=== PATIENT | male | born 1930 | race Caucasian/White ===

== ENCOUNTER 2017-03-07 09:45 | Emergency (ER) | payer MEDICARE, BC ==
[2017-03-07] MEDS ORDERED: Sodium Chloride 0.9% 1,000 ML IV SCH (10:00)
[2017-03-07] MEDS ORDERED: Ondansetron 4 MG/2 ML SDV IVPUSH PRN (10:52)
--- NOTE | 2017-03-07 11:30 | EDM.PDOC ---
ED HPI GENERAL MEDICAL PROBLEM - General Chief Complaint: Gastrointestinal Problem Stated Complaint: N/V Time Seen by Provider: 03/07/17 09:53 Source of Information: Reports: Patient, Family History Limitations: Reports: No Limitations - History of Present Illness INITIAL COMMENTS - FREE TEXT/NARRATIVE: Patient indicates back surgery laminectomy 2 weeks ago without complications on February 19 and released on February after an adverse reaction to pain medication "opioid"-where he passed out in BR. He has recuperated at home with tylenol for pain relief but indicates persistent diarrhea-he has been eating and drinking well and upon returning home from F/U yesterday and skin clip removal he stopped at truck stop in [place] and had chicken nuggets and blueberry muffin-after which had a short nap and awakened with not feeling well- nausea and vomiting in the car. He states he has had emesis without noted bleeding and affirms formed dark colored stools which he states is from the peptobismol he has been taking. Patient denies fever, or chills but affirms persistent nausea. He did eat breakfast this am and last bout of vomiting was DRAPERY HAND. He noted mid abdominal tenderness and states formed BM this am normal color and consistancy. He is passing flatus. He denies dysuria and voided DRAPERY HAND.He presents with family for evaluation. Onset: Gradual Onset Date: 03/06/17 Onset Time: 16:00 Duration: Intermittent, Waxing/Waning Location: Reports: Generalized Quality: Reports: Other (Abdominal tenderness) Severity: Mild Improves with: Reports: Rest Worsens with: Reports: Eating Context: Reports: Activity Associated Symptoms: Reports: No Other Symptoms, Nausea/Vomiting. Denies: Confusion, Chest Pain, Cough, cough w sputum, Diaphoresis, Fever/Chills, Headaches, Loss of Appetite, Malaise, Rash, Seizure, Shortness of Breath, Syncope, Weakness Treatments DRAPERY HAND: Reports: Acetaminophen Upper Abdomen Pain Score (Numeric/FACES): 7 (Tenderness to palpation) - Related Data Allergies Allergy/AdvReac Type Severity Reaction Status Date / Time Iodinated Contrast- Oral and Allergy Vomiting Verified 03/07/17 09:38 IV Dye Penicillins Allergy Cannot Verified 03/07/17 09:38 Remember Sulfa (Sulfonamide Allergy Cannot Verified 03/07/17 09:38 Antibiotics) Remember Home Meds: Home Meds Aspirin [Low Dose Aspirin EC] 81 mg PO DAILY 07/26/13 [History] Cholestyramine/Sucrose [Cholestyramine Packet] 4 gm PO DAILY 05/22/16 [History] Cyanocobalamin (Vitamin B-12) [Cyanocobalamin Injection] 1,000 mcg IM Q30D 05/22 [History] Finasteride [Finasteride] 5 mg PO DAILY 05/22/16 [History] Benazepril HCl [Lotensin] 20 mg PO BID 03/07/17 [History] Cholecalciferol (Vitamin D3) [Vitamin D3] 5,000 unit PO DAILY 03/07/17 [History] Hydrochlorothiazide [Microzide] 12.5 mg PO BID 03/07/17 [History] Magnesium Oxide [Magnesium] 500 mg PO DAILY 03/07/17 [History] Metoprolol Succinate [Toprol Xl] 50 mg PO DAILY 03/07/17 [History] Potassium Chloride 10 meq PO DAILY 03/07/17 [History] Past Medical History HEENT History: Reports: Hard of Hearing, Impaired Vision Cardiovascular History: Reports: High Cholesterol, Hypertension, Other (See Below) (Presurgical 02/19 cardiology workup WNL) Respiratory History: Reports: None Gastrointestinal History: Reports: Other (See Below) (Colonoscopy WNL-Tubular Adenoma) Genitourinary History: Reports: BPH Musculoskeletal History: Reports: Arthritis, Back Pain, Chronic, Other (See Below) (Laminectomy) Neurological History: Reports: Other (See Below) (Laminectomy) - Past Surgical History GI Surgical History: Reports: Cholecystectomy, Hernia, Abdominal, Hernia, Inguinal Social & Family History - Tobacco Use Smoking Status *Q: Former Smoker Tobacco Use Within Last Twelve Months: Cigarettes Years of Tobacco use: 15 Used Tobacco, but Quit: Yes Month Tobacco Last Used: 40 years ago - Caffeine Use Caffeine Use: Reports: Coffee - Alcohol Use Alcohol Use History: No Days Per Week of Alcohol Use: 0 - Recreational Drug Use Recreational Drug Use: No - Living Situation & Occupation Living situation: Reports: , with Spouse Occupation: Retired ED ROS GENERAL - Review of Systems Review Of Systems: See Below Constitutional: Reports: No Symptoms. Denies: Fever, Chills, Malaise, Weakness , Fatigue, Night Sweats, Diaphoresis, Decreased Appetite, Weight Loss, Weight Gain HEENT: Reports: Glasses, Hearing Loss Respiratory: Reports: No Symptoms Cardiovascular: Denies: Chest Pain, Blood Pressure Problem, Claudication, Dyspnea on Exertion, Edema, Lightheadedness, Orthopnea, Palpitations, PND, Syncope Endocrine: Reports: No Symptoms GI/Abdominal: Reports: Decreased Appetite, Flatus, Nausea, Vomiting, Other ( Muscle tenderness). Denies: Bloody Stool, Difficulty Swallowing, Distension, Hematemesis, Melena : Reports: No Symptoms Musculoskeletal: Reports: Other (Recent Laminectomy) Skin: Reports: No Symptoms Neurological: Reports: No Symptoms. Denies: Confusion, Dizziness, Headache, Numbness, Paresthesia, Pre-Existing Deficit, Seizure, Syncope, Tingling, Tremors , Trouble Speaking, Difficulty Walking, Weakness, Gait Disturbance Psychiatric: Reports: Anxiety Hematologic/Lymphatic: Reports: No Symptoms Immunologic: Reports: No Symptoms ED EXAM, GI/ABD - Physical Exam Exam: See Below Exam Limited By: No Limitations General Appearance: Alert, WD/WN, No Apparent Distress Eyes: Bilateral: Normal Appearance, EOMI, Abnormal EOM Ears: Normal External Exam, Normal Canal, Hearing Loss Nose: Normal Inspection, Normal Mucosa, No Blood Throat/Mouth: Normal Inspection, Normal Lips, Normal Teeth, Normal Gums, Normal Oropharynx, Normal Voice, No Airway Compromise Head: Atraumatic, Normocephalic Neck: Non-Tender, Full Range of Motion Respiratory/Chest: No Respiratory Distress, Lungs Clear, Normal Breath Sounds, No Accessory Muscle Use, Chest Non-Tender Cardiovascular: Normal Peripheral Pulses, Regular Rate, Rhythm, No Edema, No Gallop, No JVD, No Murmur GI/Abdominal Exam: Normal Bowel Sounds, Soft, No Organomegaly, No Distention, No Abnormal Bruit, No Mass, Tender (Male) Exam: Deferred Rectal (Males) Exam: Deferred Back Exam: Normal Inspection (4 cm incision L Spine with edges well approximated and good healing. No exudate or redness noted.) Extremities: Normal Inspection, Normal Range of Motion, Non-Tender, No Pedal Edema, Normal Capillary Refill Neurological: Alert, Oriented, CN II-XII Intact, Normal Cognition, Normal Gait, Normal Reflexes, No Motor/Sensory Deficits Psychiatric: Normal Affect, Normal Mood Skin Exam: Warm, Dry, Intact, Normal Color, No Rash, Other (Incision L SPine as indicated.) Lymphatic: No Adenopathy ED ABDOMINAL/GI PROCEDURES - Additional/Other Procedure(s) Procedure(s) (Free Text): CT Abdomen without contrast indicates dilated bowel with air fluid levels and ascites. Questionable bowel obstruction vs colitis. Course - Vital Signs Last Recorded V/S: Last Vital Signs Temp 37.3 C 03/07/17 14:37 Pulse 83 03/07/17 14:37 Resp 20 03/07/17 14:37 BP 125/72 03/07/17 14:37 Pulse Ox 95 03/07/17 14:37 - Orders/Labs/Meds Orders: Active Orders 24 hr Category Date Time Status Abdomen Pelvis wo Cont [CT] Stat Exams 03/07/17 11:15 Taken Ondansetron [Zofran] Med 03/07/17 10:52 Active 4 mg IVPUSH Q6H PRN Sodium Chloride 0.9% [Normal Saline] 1,000 ml Med 03/07/17 10:00 Active IV ASDIRECTED Medication Orders Sodium Chloride (Normal Saline) 1,000 mls @ 50 mls/hr IV ASDIRECTED MANDO Last Admin: 03/07/17 10:16 Dose: 50 mls/hr Ondansetron HCl (Zofran) 4 mg IVPUSH Q6H PRN PRN Reason: Nausea Last Admin: 03/07/17 11:02 Dose: 4 mg Labs: Laboratory Tests 03/07/17 03/07/17 03/07/17 Range/Units 09:56 09:56 12:21 WBC 22.8 H* (5.0-10.0) 10^3/uL RBC 4.69 (4.50-6.00) 10^6/uL Hgb 13.0 L (14.0-18.0) g/dL Hct 38.9 L (40.0-54.0) % MCV 82.9 (82.0-94.0) fL MCH 27.7 (27.0-32.0) pg MCHC 33.4 (33.0-38.0) g/dL RDW Coeff of [place] 14.0 (11.0-15.0) % Plt Count 645 H (150-400) 10^3/uL Add Manual Diff Yes Neutrophils % (Manual) 90 H (35-85) % Lymphocytes % (Manual) 6 L (21-55) % Monocytes % (Manual) 4 (2-12) % Absolute Neutrophils 20.52 H (1.80-7.00) 10^3/uL Lymphocytes # (Manual) 1.37 (1.00-4.80) 10^3/uL Monocytes # (Manual) 0.91 H (0.00-0.80) 10^3/uL Sodium 134 L (136-145) mEq/L Potassium 3.4 L (3.5-5.0) mEq/L Chloride 94 L (98-106) mEq/L Carbon Dioxide 34 H (21-32) mmol/L BUN 22 H (7-18) mg/dL Creatinine 1.4 H (0.7-1.3) mg/dL Est Cr Clr Drug Dosing 36.47 mL/min Estimated GFR (MDRD) 48 L (>=60) mL/min Glucose 148 H D (75-99) mg/dL Calcium 8.9 (8.4-10.1) mg/dL Total Bilirubin 0.9 (0.0-1.0) mg/dL AST 16 (15-37) U/L ALT 15 (12-78) U/L Alkaline Phosphatase 104 (46-116) U/L Troponin I 0.028 (0.00-0.06) ng/mL C-Reactive Protein 3.9 H (0.2-0.8) mg/dL Total Protein 6.7 (6.4-8.2) g/dL Albumin 2.9 L (3.4-5.0) g/dL Amylase 47 (25-115) U/L Urine Color Dark yellow (YELLOW) Urine Appearance Slightly cloudy (CLEAR) Urine pH 5.5 (4.5-8.0) Ur Specific [place] 1.025 H (1.003-1.020) Urine Protein 100 H (NEGATIVE) mg/dL Urine Glucose (UA) Negative (NEGATIVE) mg/dL Urine Ketones Trace H (NEGATIVE) mg/dL Urine Occult Blood Negative (NEGATIVE) Urine Nitrite Negative (NEGATIVE) Urine Bilirubin Small H (NEGATIVE) Urine Urobilinogen 0.2 (0.2-1.0) EU/dL Ur Leukocyte Esterase Negative (NEGATIVE) Urine RBC Not seen (0-5) /HPF Urine WBC 0-5 (0-5) /HPF Ur Squamous Epith Cells Occasional H (NOT SEEN) /HPF Urine Bacteria Occasional H (NOT SEEN) /HPF Hyaline Casts Few H (NOT SEEN) /LPF Urine Mucus Moderate H (NOT SEEN) /HPF Meds: Medications Generic Name Dose Route Start Last Admin Trade Name Freq PRN Reason Stop Dose Admin Sodium Chloride 1,000 mls @ 50 mls/hr 03/07/17 10:00 03/07/17 10:16 Normal Saline IV 50 mls/hr ASDIRECTED MANDO Administration Ondansetron HCl 4 mg 03/07/17 10:52 03/07/17 11:02 Zofran IVPUSH 4 mg Q6H PRN Administration Nausea Discontinued Medications Generic Name Dose Route Start Last Admin Trade Name Freq PRN Reason Stop Dose Admin Ceftriaxone Sodium 1 gm 03/07/17 13:37 03/07/17 13:53 Rocephin IVPUSH 03/07/17 13:38 1 gm ONETIME ONE Administration Metronidazole 500 mg/ Premix 100 mls @ 100 mls/hr 03/07/17 13:37 03/07/17 14: 00 IV 03/07/17 14:36 100 mls/hr ONETIME ONE Administration Departure - Departure Time of Disposition: 15:05 Disposition: DC/Tfer to Acute Hospital 02 Condition: Fair Clinical Impression: Abdominal pain, Small bowel obstruction - Discharge Information Referrals: Jonny Valladares MD [Primary Care Provider] - Forms: ED Department Discharge MLP Sign Off - Signature Requirements MLP Sign Off: No - Problem List & Annotations (1) Gastroenteritis SNOMED Code(s): 88052077 Code(s): K52.9 - NONINFECTIVE GASTROENTERITIS AND COLITIS, UNSPECIFIED Status: Acute Current Visit: Yes (2) Neutrophilic leukocytosis SNOMED Code(s): 989647821, 745685921 Code(s): D72.9 - DISORDER OF WHITE BLOOD CELLS, UNSPECIFIED Status: Acute Current Visit: No (3) Bowel obstruction SNOMED Code(s): 40133548 Code(s): K56.60 - UNSPECIFIED INTESTINAL OBSTRUCTION Status: Acute Current Visit: Yes - Problem List Review Problem List Initiated/Reviewed/Updated: Yes - My Orders Last 24 Hours: My Active Orders 03/07/17 10:00 Sodium Chloride 0.9% [Normal Saline] 1,000 ml IV ASDIRECTED 03/07/17 10:52 Ondansetron [Zofran] 4 mg IVPUSH Q6H PRN 03/07/17 11:15 Abdomen Pelvis wo Cont [CT] Stat - Assessment/Plan Last 24 Hours: My Active Orders 03/07/17 10:00 Sodium Chloride 0.9% [Normal Saline] 1,000 ml IV ASDIRECTED 03/07/17 10:52 Ondansetron [Zofran] 4 mg IVPUSH Q6H PRN 03/07/17 11:15 Abdomen Pelvis wo Cont [CT] Stat Assessment:: Gastroenteritis Leukocytosis S/P Back Surgery Abdominal CT noted significant dilated loops of bowel with air fluid levels and ascites. Difficult to ascertain due to inability of patient to have contrast per Radiology. Bowel obstruction- Questionable inflammatory bowel disease. Plan: [facility] care. Patient and family agree with transfer. Risks and benefits discussed with family andpatient. Risks of transfer vhicle crash, uncontrolled pain, possible . Benefits of transfer specialized care and interventions not provided at local facility. Risks of non transfer lack of specialized care treatments and interventions. Worsening of condition, . Benefits of non transfer staying in familiar environment and close to home. Patient and family verbalize understanding and is in agreement with transfer.
[2017-03-07] MEDS ORDERED: cefTRIAXone 1 GM Vial IVPUSH ONE (13:37)
[2017-03-07] MEDS ORDERED: metroNIDAZOLE/Normal Saline 500 MG in Premix Bag 1 BAG IV ONE (13:37)
[2017-03-07 14:38] VITALS: BP 125/72
== END 2017-03-07 15:05 ==
LOC: CC.ED 09:45
DX: K56.60 Unspecified intestinal obstruction (principal); K52.9 Noninfective gastroenteritis and colitis, unspecified; D72.829 Elevated white blood cell count, unspecified; I10 Essential (primary) hypertension; M19.90 Unspecified osteoarthritis, unspecified site; Z90.49 Acquired absence of other specified parts of digestive tract; Z88.8 Allergy status to other drugs, medicaments and biological substances; Z88.0 Allergy status to penicillin; Z79.899 Other long term (current) drug therapy; Z79.82 Long term (current) use of aspirin; Z88.2 Allergy status to sulfonamides; Z87.891 Personal history of nicotine dependence; Z98.890 Other specified postprocedural states
CPT/HCPCS: 36415; 74176; 80053; 81001; 82150; 84484; 85025; 86140; 93005; 96361; 96365; 96375; 99285; J0696; J2405; J7030; 93010

== ENCOUNTER 2017-10-27 11:03 | Inpatient (IN) | payer MEDICARE, BC ==
[2017-10-27] MEDS ORDERED: Lactated Ringers 1,000 ML IV ONE (11:45)
--- NOTE | 2017-10-27 12:51 | EDM.PDOC ---
ED HPI GENERAL MEDICAL PROBLEM - General Chief Complaint: Gastrointestinal Problem Stated Complaint: diarrhea x6 with dull abd pain Time Seen by Provider: 10/27/17 11:37 Source of Information: Reports: Patient History Limitations: Reports: No Limitations - History of Present Illness INITIAL COMMENTS - FREE TEXT/NARRATIVE: Harshal is an 87 year old male who presents to the ED with c/o diarrhea x 6 and some dull abdominal pain starting this morning. He reports he is currently on oral chemotherapy for colon cancer. Reports he has never had any issues with this type of diarrhea. He does chronically have some diarrhea, but he reports that today it was large volume and watery. He reports that he was scheduled to f /u with his oncologist today, but instead called and told them about his symptoms. They recommended he be seen in the ED for evaluation, prior to driving all the way to [place]. He reports that starting this morning he has had some dull crampy lower abdominal pain. Has had 6 episodes of large volume watery diarrhea. Reports his appetite is decreased. Denies any N/V, fever, chills, chest pain, shortness of breath, cough, urinary symptoms. Reports that up until yesterday he has been feeling well. He is on oral chemo rounds which consist of 2 weeks on, 1 week off. He reports he was scheduled to start his 6th round today. Onset: Today Duration: Getting Worse Location: Reports: Abdomen Quality: Reports: Dull, Other (crampy) Improves with: Reports: None Worsens with: Reports: None Associated Symptoms: Reports: Loss of Appetite, Nausea/Vomiting, Weakness. Denies: Confusion, Chest Pain, Cough, cough w sputum, Diaphoresis, Fever/Chills , Headaches, Malaise, Rash, Seizure, Shortness of Breath, Syncope Lower Abdominal Pain Score (Numeric/FACES): 3 - Related Data Allergies Allergy/AdvReac Type Severity Reaction Status Date / Time Iodinated Contrast- Oral and Allergy Vomiting Verified 10/27/17 11:20 IV Dye Penicillins Allergy Cannot Verified 10/27/17 11:20 Remember Sulfa (Sulfonamide Allergy Cannot Verified 10/27/17 11:20 Antibiotics) Remember tramadol Allergy Fainting Verified 10/27/17 11:29 Home Meds: Home Meds Aspirin [Low Dose Aspirin EC] 81 mg PO DAILY 02/11/14 [History] Cholestyramine/Sucrose [Cholestyramine Packet] 4 gm PO DAILY 05/22/16 [History] Cyanocobalamin (Vitamin B-12) [Cyanocobalamin Injection] 1,000 mcg IM Q30D 05/22 [History] Finasteride 5 mg PO DAILY 05/22/16 [History] Benazepril HCl [Lotensin] 20 mg PO BID 03/07/17 [History] Cholecalciferol (Vitamin D3) [Vitamin D3] 5,000 unit PO DAILY 03/07/17 [History] Hydrochlorothiazide [Microzide] 12.5 mg PO BID 03/07/17 [History] Magnesium Oxide [Magnesium] 500 mg PO DAILY 03/07/17 [History] Metoprolol Succinate [Toprol Xl] 50 mg PO DAILY 03/07/17 [History] Potassium Chloride 10 meq PO DAILY 03/07/17 [History] Capecitabine 600 mg PO BEDTIME 10/27/17 [History] Capecitabine 800 mg PO QAM 10/27/17 [History] Past Medical History HEENT History: Reports: Hard of Hearing, Impaired Vision Cardiovascular History: Reports: High Cholesterol, Hypertension, Other (See Below) Respiratory History: Reports: None Gastrointestinal History: Reports: Other (See Below) Genitourinary History: Reports: BPH Musculoskeletal History: Reports: Arthritis, Back Pain, Chronic, Other (See Below) Neurological History: Reports: Other (See Below) Oncologic (Cancer) History: Reports: Colon - Past Surgical History GI Surgical History: Reports: Cholecystectomy, Hernia, Abdominal, Hernia, Inguinal Social & Family History - Tobacco Use Smoking Status *Q: Never Smoker - Caffeine Use Caffeine Use: Reports: Coffee - Living Situation & Occupation Living situation: Reports: , with Spouse Occupation: Retired ED ROS GENERAL - Review of Systems Review Of Systems: See Below Constitutional: Reports: Weakness, Fatigue, Decreased Appetite. Denies: Fever, Chills, Diaphoresis Respiratory: Denies: Shortness of Breath, Wheezing, Pleuritic Chest Pain, Cough , Sputum, Hemoptysis Cardiovascular: Denies: Chest Pain, Dyspnea on Exertion, Edema, Lightheadedness , Syncope Endocrine: Reports: Fatigue GI/Abdominal: Reports: Abdominal Pain, Anorexia, Diarrhea, Decreased Appetite, Nausea. Denies: Black Stool, Bloody Stool, Constipation, Distension, Hematemesis, Hematochezia, Melena, Vomiting : Reports: No Symptoms. Denies: Dysuria, Frequency, Urgency Musculoskeletal: Reports: No Symptoms Skin: Reports: No Symptoms Neurological: Reports: No Symptoms Psychiatric: Reports: No Symptoms Hematologic/Lymphatic: Reports: No Symptoms Immunologic: Reports: No Symptoms ED EXAM, GI/ABD - Physical Exam Exam: See Below Exam Limited By: No Limitations General Appearance: Alert, WD/WN, No Apparent Distress Throat/Mouth: Normal Inspection Head: Atraumatic, Normocephalic Neck: Normal Inspection, Supple, Non-Tender, Full Range of Motion Respiratory/Chest: No Respiratory Distress, Lungs Clear, Normal Breath Sounds, No Accessory Muscle Use, Chest Non-Tender Cardiovascular: Normal Peripheral Pulses, Regular Rate, Rhythm, No Edema, No Gallop, No JVD, No Murmur, No Rub GI/Abdominal Exam: Normal Bowel Sounds, Soft, No Organomegaly, No Distention, Tender (lower quadrants). No: Guarding, Rigid, Rebound Back Exam: Normal Inspection, Full Range of Motion. No: CVA Tenderness (L), CVA Tenderness (R) Extremities: Normal Inspection, Normal Range of Motion, Non-Tender, Normal Capillary Refill, No Pedal Edema Neurological: Alert, Oriented, CN II-XII Intact, Normal Cognition, Normal Gait, Normal Reflexes, No Motor/Sensory Deficits Psychiatric: Normal Affect, Normal Mood Skin Exam: Warm, Dry, Intact, Normal Color, No Rash Lymphatic: No Adenopathy Course - Vital Signs Last Recorded V/S: Last Vital Signs Temp 97.4 F 10/27/17 16:00 Pulse 92 10/27/17 16:00 Resp 18 10/27/17 16:00 BP 149/65 H 10/27/17 16:00 Pulse Ox 95 10/27/17 16:00 - Orders/Labs/Meds Orders: Active Orders 24 hr Category Date Time Status Abdomen Pelvis w Cont [CT] Stat Exams 10/27/17 12:41 Taken Chest w Cont [CT] Stat Exams 10/27/17 12:41 Taken STOOL CULTURE [MREF] Stat Lab 10/27/17 12:13 Received Medication Orders Acetaminophen (Tylenol) 650 mg PO Q4H PRN PRN Reason: Pain (Mild 1-3)/fever Aspirin (Halfprin) 81 mg PO DAILY [facility] Enoxaparin Sodium (Lovenox) 40 mg SUBCUT Q24H [facility] Last Admin: 10/27/17 15:11 Dose: 40 mg Finasteride (Proscar) 5 mg PO DAILY [facility] Hydrochlorothiazide (Hydrochlorothiazide) 12.5 mg PO BID [facility] Lactated Ringer's (Ringers, Lactated) 1,000 mls @ 75 mls/hr IV ASDIRECTED [facility] Last Admin: 10/27/17 15:12 Dose: 75 mls/hr Potassium Chloride 40 meq/ (Premix) 100 mls @ 25 mls/hr IV ONETIME ONE Stop: 10/27/17 18:35 Last Admin: 10/27/17 15:11 Dose: 25 mls/hr Non-Formulary Medication (Benazepril Hcl) 20 mg PO BID [facility] Non-Formulary Medication (Cholecalciferol (Vitamin D3) [Vitamin D3]) 5,000 unit PO DAILY [facility] Non-Formulary Medication (Cholestyramine/Sucrose [Cholestyramine]) 4 gm PO DAILY [facility] Non-Formulary Medication (Magnesium Oxide [Magnesium]) 500 mg PO DAILY [facility] Non-Formulary Medication (Metoprolol Succinate [Toprol Xl]) 50 mg PO DAILY [facility] Ondansetron HCl (Zofran) 4 mg IV Q6H PRN PRN Reason: Nausea/Vomiting Temazepam (Restoril) 15 mg PO BEDTIME PRN PRN Reason: Sleep Vancomycin HCl (Vancocin 125 Mg/2.5 Ml Soln) 125 mg PO QID [facility] Last Admin: 10/27/17 15:11 Dose: 125 mg Labs: Laboratory Tests 10/27/17 10/27/17 10/27/17 Range/Units 11:45 11:45 11:45 WBC 15.7 H (5.0-10.0) 10^3/uL RBC 3.66 L (4.50-6.00) 10^6/uL Hgb 11.0 L (14.0-18.0) g/dL Hct 33.2 L (40.0-54.0) % MCV 90.7 (82.0-94.0) fL MCH 30.1 (27.0-32.0) pg MCHC 33.1 (33.0-38.0) g/dL RDW Coeff of Yesica 24.1 H (11.0-15.0) % Plt Count 597 H (150-400) 10^3/uL Neut % (Auto) 82.1 (35-85) % Lymph % (Auto) 7.5 L (10-55) % Harlan % (Auto) 9.3 (0-16) % Eos % (Auto) 1.0 (0-5) % Baso % (Auto) 0.1 (0-3) % Neut # (Auto) 12.85 H (1.80-7.00) 10^3/uL Lymph # (Auto) 1.17 (1.00-4.80) 10^3/uL Harlan # (Auto) 1.45 H (0.00-0.80) 10^3/uL Eos # (Auto) 0.16 (0.00-0.45) 10^3/uL Baso # (Auto) 0.02 10^3/uL Sodium 135 L (136-145) mEq/L Potassium 2.8 L* (3.5-5.0) mEq/L Chloride 97 L (98-106) mEq/L Carbon Dioxide 26 (21-32) mmol/L BUN 23 H D (7-18) mg/dL Creatinine 1.5 H (0.7-1.3) mg/dL Est Cr Clr Drug Dosing 34.04 mL/min Estimated GFR (MDRD) 44 L (>=60) mL/min Glucose 120 H D (75-99) mg/dL Calcium 8.4 (8.4-10.1) mg/dL Total Bilirubin 1.8 H (0.0-1.0) mg/dL AST 19 (15-37) U/L ALT 15 (12-78) U/L Alkaline Phosphatase 108 (46-116) U/L C-Reactive Protein 5.5 H (0.2-0.8) mg/dL Total Protein 6.5 (6.4-8.2) g/dL Albumin 2.9 L (3.4-5.0) g/dL Meds: Medications Generic Name Dose Route Start Last Admin Trade Name Freq PRN Reason Stop Dose Admin Acetaminophen 650 mg 10/27/17 14:36 Tylenol PO Q4H PRN Pain (Mild 1-3)/fever Aspirin 81 mg 10/28/17 08:00 Halfprin PO DAILY [facility] Enoxaparin Sodium 40 mg 10/27/17 14:36 10/27/17 15:11 Lovenox SUBCUT 40 mg Q24H [facility] Administration Finasteride 5 mg 10/28/17 08:00 Proscar PO DAILY [facility] Hydrochlorothiazide 12.5 mg 10/27/17 20:00 Hydrochlorothiazide PO BID [facility] Lactated Ringer's 1,000 mls @ 75 mls/hr 10/27/17 14:45 10/27/17 15:12 Ringers, Lactated IV 75 mls/hr ASDIRECTED [facility] Administration Potassium Chloride 40 meq/ 100 mls @ 25 mls/hr 10/27/17 14:36 10/27/17 15:11 Premix IV 10/27/17 18:35 25 mls/hr ONETIME ONE Administration Non-Formulary Medication 20 mg 10/27/17 20:00 Benazepril Hcl PO BID [facility] Non-Formulary Medication 5,000 unit 10/28/17 08:00 Cholecalciferol (Vitamin D3) [Vitamin D3] PO DAILY [facility] Non-Formulary Medication 4 gm 10/28/17 08:00 Cholestyramine/Sucrose [Cholestyramine] PO DAILY [facility] Non-Formulary Medication 500 mg 10/28/17 08:00 Magnesium Oxide [Magnesium] PO DAILY [facility] Non-Formulary Medication 50 mg 10/28/17 08:00 Metoprolol Succinate [Toprol Xl] PO DAILY [facility] Ondansetron HCl 4 mg 10/27/17 14:36 Zofran IV Q6H PRN Nausea/Vomiting Temazepam 15 mg 10/27/17 14:36 Restoril PO BEDTIME PRN Sleep Vancomycin HCl 125 mg 10/27/17 16:00 10/27/17 15:11 Vancocin 125 Mg/2.5 Ml Soln PO 125 mg QID [facility] Administration Discontinued Medications Generic Name Dose Route Start Last Admin Trade Name Freq PRN Reason Stop Dose Admin Lactated Ringer's 1,000 mls @ 500 mls/hr 10/27/17 11:45 10/27/17 12:07 Ringers, Lactated IV 10/27/17 13:44 500 mls/hr .BOLUS ONE Administration Iopamidol 100 ml 10/27/17 14:08 10/27/17 16:21 Isovue-300 (61%) IVPUSH 10/27/17 14:09 100 ml ONETIME ONE Administration - Re-Assessments/Exams Free Text/Narrative Re-Assessment/Exam: 10/27/17 12:[address] Farooq (patients oncologist at [facility]). He recommends admission, hydrate with IV fluids, replace potassium, and Ct of chest , abdomen and pelvis. Creatinine 1.5. Hold chemo meds. Recheck labs in am. Elevated WBC 15.6. Critical potassium at 2.8. Discussed admission with patient, who is agreeable with plan. Departure - Departure Time of Disposition: 13:49 Disposition: Admitted As Inpatient 65 Condition: Fair Clinical Impression: Hypokalemia, C. difficile diarrhea Colon cancer Qualifiers: Colon location: unspecified part of colon Qualified Code(s): C18.9 - Malignant neoplasm of colon, unspecified - Discharge Information - Problem List & Annotations (1) C. difficile diarrhea SNOMED Code(s): 5778688650438 Code(s): A04.72 - ENTEROCOLITIS D/T CLOSTRIDIUM DIFFICILE, NOT SPCF RECUR Status: Acute Current Visit: Yes (2) Colon cancer SNOMED Code(s): 117493929 Code(s): C18.9 - MALIGNANT NEOPLASM OF COLON, UNSPECIFIED Status: Acute Current Visit: Yes Qualifiers: Colon location: unspecified part of colon Qualified Code(s): C18.9 - Malignant neoplasm of colon, unspecified (3) Hypokalemia SNOMED Code(s): 09122798 Code(s): E87.6 - HYPOKALEMIA Status: Acute Current Visit: Yes (4) Weakness SNOMED Code(s): 22954781 Code(s): R53.1 - WEAKNESS Status: Acute Current Visit: Yes (5) Hypertension SNOMED Code(s): 77653042 Code(s): I10 - ESSENTIAL (PRIMARY) HYPERTENSION Status: Acute Current Visit: Yes Qualifiers: Hypertension type: essential hypertension Qualified Code(s): I10 - Essential (primary) hypertension - Problem List Review Problem List Initiated/Reviewed/Updated: Yes - My Orders Last 24 Hours: My Active Orders 10/27/17 12:13 STOOL CULTURE [MREF] Stat 10/27/17 12:41 Abdomen Pelvis w Cont [CT] Stat Chest w Cont [CT] Stat - Assessment/Plan Admission H&P: Please use this note as an admission H&P Last 24 Hours: My Active Orders 10/27/17 12:13 STOOL CULTURE [MREF] Stat 10/27/17 12:41 Abdomen Pelvis w Cont [CT] Stat Chest w Cont [CT] Stat Plan: Admit acute with telemetry to Dr. Valladares. Start IVF. Replace K with 40 meq IV potassium chloride. PO vancomycin for C Diff Hold PO chemotherapy Awaiting CT abdomen/pelvis and chest results Recheck labs in am
[2017-10-27] MEDS ORDERED: Iopamidol 612 MG/ML 100 ML Bottle IVPUSH ONE (14:08)
[2017-10-27] MEDS ORDERED: Temazepam 15 MG Cap PO PRN (14:36)
[2017-10-27] MEDS ORDERED: Enoxaparin 40 MG/0.4 ML Syringe SUBCUT SCH (14:36)
[2017-10-27] MEDS ORDERED: Acetaminophen 325 MG Tab PO PRN (14:36)
[2017-10-27] MEDS ORDERED: Potassium Chloride 40 MEQ in Premix Bag 1 BAG IV ONE (14:36)
[2017-10-27] MEDS ORDERED: Ondansetron 4 MG/2 ML SDV IV PRN (14:36)
[2017-10-27] MEDS: Vancomycin 125 MG/2.5 ML Oral Solution 2.5 ML UD Cup PO SCH ×2 (15:11→19:34)
[2017-10-27] MEDS: Lactated Ringers 1,000 ML IV SCH ×2 (15:12→20:29)
[2017-10-27] MEDS: Lisinopril 20 MG Tab PO SCH (19:34)
[2017-10-27] MEDS: Hydrochlorothiazide 12.5 MG Cap PO SCH (19:34)
[2017-10-28] MEDS: Aspirin 81 MG Tab.EC PO SCH (07:50)
[2017-10-28] MEDS: Hydrochlorothiazide 12.5 MG Cap PO SCH ×2 (07:51→19:50)
[2017-10-28] MEDS: Metoprolol Succinate 25 MG Tab.ER PO SCH (07:52)
[2017-10-28] MEDS: Lisinopril 20 MG Tab PO SCH ×2 (07:52→19:50)
[2017-10-28] MEDS: Finasteride 5 MG Tab PO SCH (07:52)
[2017-10-28] MEDS: Cholecalciferol (Vitamin D3) 1,000 Unit Tab PO SCH (07:53)
[2017-10-28] MEDS: Vancomycin 125 MG/2.5 ML Oral Solution 2.5 ML UD Cup PO SCH ×4 (07:55→19:46)
[2017-10-28] MEDS ORDERED: Magnesium Sulfate/D5W 2 GM in Premix Bag 1 BAG IV ONE (09:44)
[2017-10-28] MEDS ORDERED: Dextrose 5%-0.45% NaCl 1,000 ML IV SCH ×2 (09:45→11:26)
[2017-10-28] MEDS ORDERED: Potassium Chloride 40 MEQ in Premix Bag 1 BAG IV ONE ×4 (10:00→18:00)
[2017-10-28] MEDS: Enoxaparin 60 MG/0.6 ML Syringe SUBCUT SCH ×2 (10:17→19:47)
[2017-10-28] MEDS: [UNRECOGNIZED DRUG - REMARK] PO SCH ×2 (10:34→19:50)
--- NOTE | 2017-10-28 10:40 | PN ---
DATE: 10/28/2017 S: Harshal Hernandez came in with C. diff yesterday. O: NECK: Supple. CHEST: Wheezing. CARDIAC: Sounds are good. ABDOMEN: Tenderness left lower gutter. ASSESSMENT: POSSIBLE MULTIPLE PULMONARY EMBOLI ON CTA, HYPOKALEMIA, LOW MAGNESIUM. P: We will start anticoagulation and correct magnesium and potassium. VASILE/KATYA /[id number]
[2017-10-28] MEDS ORDERED: POTASSIUM CHLORIDE IV ONE (11:17)
[2017-10-28] MEDS ORDERED: Dextrose 5%-0.45% NaCl 1,000 ML IV ONE ×2 (11:30→18:00)
--- NOTE | 2017-10-28 11:31 | PCM.PN ---
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 He reports he has had continued watery diarrhea. Has had two loose stools this morning already. He does feel the diarrhea is slowing some. He reports his abdominal pain has improved some, but he does still have some tenderness to his lower abdomen. Functional Status: Reports: Pain Controlled, Tolerating Diet, Ambulating, Urinating. Denies: New Symptoms - Review of Systems General: Reports: Weakness, Fatigue. Denies: Fever, Chills Pulmonary: Reports: No Symptoms. Denies: Shortness of Breath, Cough, Wheezing Cardiovascular: Reports: No Symptoms. Denies: Chest Pain Gastrointestinal: Reports: Abdominal Pain, Decreased Appetite, Diarrhea. Denies : Hematochezia, Melena, Nausea, Vomiting Genitourinary: Reports: No Symptoms. Denies: Dysuria, Frequency, Urgency Musculoskeletal: Reports: No Symptoms Skin: Reports: No Symptoms Neurological: Reports: No Symptoms Psychiatric: Reports: No Symptoms - Patient Data Vitals - Most Recent: Last Vital Signs Temp 97.8 F 10/28/17 08:00 Pulse 81 10/28/17 08:00 Resp 20 10/28/17 08:00 BP 137/67 10/28/17 08:00 Pulse Ox 92 L 10/28/17 08:00 Weight - Most Recent: 159 lb 1.6 oz I&O - Last 24 Hours: Intake & Output 10/27/17 10/28/17 10/28/17 22:59 06:59 14:59 Intake Total 561 250 Output Total 750 Balance 561 -500 Lab Results Last 24 Hours: Laboratory Results - last 24 hr 10/27/17 10/27/17 10/27/17 Range/Units 11:45 11:45 11:45 WBC 15.7 H (5.0-10.0) 10^3/uL RBC 3.66 L (4.50-6.00) 10^6/uL Hgb 11.0 L (14.0-18.0) g/dL Hct 33.2 L (40.0-54.0) % MCV 90.7 (82.0-94.0) fL MCH 30.1 (27.0-32.0) pg MCHC 33.1 (33.0-38.0) g/dL RDW Coeff of Yesica 24.1 H (11.0-15.0) % Plt Count 597 H (150-400) 10^3/uL Neut % (Auto) 82.1 (35-85) % Lymph % (Auto) 7.5 L (10-55) % [place] % (Auto) 9.3 (0-16) % Eos % (Auto) 1.0 (0-5) % Baso % (Auto) 0.1 (0-3) % Neut # (Auto) 12.85 H (1.80-7.00) 10^3/uL Lymph # (Auto) 1.17 (1.00-4.80) 10^3/uL [place] # (Auto) 1.45 H (0.00-0.80) 10^3/uL Eos # (Auto) 0.16 (0.00-0.45) 10^3/uL Baso # (Auto) 0.02 10^3/uL Sodium 135 L (136-145) mEq/L Potassium 2.8 L* (3.5-5.0) mEq/L Chloride 97 L (98-106) mEq/L Carbon Dioxide 26 (21-32) mmol/L BUN 23 H D (7-18) mg/dL Creatinine 1.5 H (0.7-1.3) mg/dL Est Cr Clr Drug Dosing 34.04 mL/min Estimated GFR (MDRD) 44 L (>=60) mL/min Glucose 120 H D (75-99) mg/dL Calcium 8.4 (8.4-10.1) mg/dL Magnesium (1.8-2.4) mg/dL Total Bilirubin 1.8 H (0.0-1.0) mg/dL AST 19 (15-37) U/L ALT 15 (12-78) U/L Alkaline Phosphatase 108 (46-116) U/L C-Reactive Protein 5.5 H (0.2-0.8) mg/dL Total Protein 6.5 (6.4-8.2) g/dL Albumin 2.9 L (3.4-5.0) g/dL 10/28/17 10/28/17 Range/Units 06:00 07:00 WBC 12.7 H (5.0-10.0) 10^3/uL RBC 3.40 L (4.50-6.00) 10^6/uL Hgb 10.4 L (14.0-18.0) g/dL Hct 31.0 L (40.0-54.0) % MCV 91.2 (82.0-94.0) fL MCH 30.6 (27.0-32.0) pg MCHC 33.5 (33.0-38.0) g/dL RDW Coeff of [place] 23.5 H (11.0-15.0) % Plt Count 318 (150-400) 10^3/uL Neut % (Auto) 75.0 (35-85) % Lymph % (Auto) 11.9 (10-55) % [place] % (Auto) 11.5 (0-16) % Eos % (Auto) 1.3 (0-5) % Baso % (Auto) 0.3 (0-3) % Neut # (Auto) 9.49 H (1.80-7.00) 10^3/uL Lymph # (Auto) 1.50 (1.00-4.80) 10^3/uL [place] # (Auto) 1.45 H (0.00-0.80) 10^3/uL Eos # (Auto) 0.17 (0.00-0.45) 10^3/uL Baso # (Auto) 0.04 10^3/uL Sodium 136 (136-145) mEq/L Potassium 2.7 L* (3.5-5.0) mEq/L Chloride 99 (98-106) mEq/L Carbon Dioxide 28 (21-32) mmol/L BUN 16 (7-18) mg/dL Creatinine 1.3 (0.7-1.3) mg/dL Est Cr Clr Drug Dosing 39.28 mL/min Estimated GFR (MDRD) 52 L (>=60) mL/min Glucose 132 H (75-99) mg/dL Calcium 8.5 (8.4-10.1) mg/dL Magnesium 1.2 L (1.8-2.4) mg/dL Total Bilirubin (0.0-1.0) mg/dL AST (15-37) U/L ALT (12-78) U/L Alkaline Phosphatase (46-116) U/L C-Reactive Protein (0.2-0.8) mg/dL Total Protein (6.4-8.2) g/dL Albumin (3.4-5.0) g/dL [place] Results Last 24 Hours: Microbiology 10/27/17 12:13 C. difficile DNA Amplification - Final Stool / Feces Positive C. Diff Toxin 10/27/17 12:13 Stool for WBCs - Final Stool / Feces NO WBC SEEN Med Orders - Current: Current Medications Acetaminophen (Tylenol) 650 mg PO Q4H PRN PRN Reason: Pain (Mild 1-3)/fever Aspirin (Halfprin) 81 mg PO DAILY [facility] Last Admin: 10/28/17 07:50 Dose: 81 mg Cholecalciferol (Vitamin D3) 5,000 units PO DAILY [facility] Last Admin: 10/28/17 07:53 Dose: 5,000 units Enoxaparin Sodium (Lovenox) 60 mg SUBCUT BID [facility] Last Admin: 10/28/17 10:17 Dose: 60 mg Finasteride (Proscar) 5 mg PO DAILY [facility] Last Admin: 10/28/17 07:52 Dose: 5 mg Hydrochlorothiazide (Hydrochlorothiazide) 12.5 mg PO BID [facility] Last Admin: 10/28/17 07:51 Dose: 12.5 mg Magnesium Sulfate/Dextrose 2 (gm/ Premix) 200 mls @ 100 mls/hr IV ONETIME ONE Stop: 10/28/17 11:43 Last Admin: 10/28/17 10:12 Dose: 100 mls/hr Dextrose/Sodium Chloride (Dextrose 5%-1/2 Ns) 1,000 mls @ 125 mls/hr IV ASDIRECTED [facility] Stop: 10/28/17 19:17 Potassium Chloride 40 meq/ (Premix) 100 mls @ 12.5 mls/hr IV ONETIME ONE Stop: 10/28/17 19:16 Lisinopril (Prinivil) 20 mg PO BID [facility] Last Admin: 10/28/17 07:52 Dose: 20 mg Magnesium Oxide (Magnesium Oxide) 500 mg PO DAILY [facility] Last Admin: 10/28/17 07:50 Dose: 500 mg Metoprolol Succinate (Toprol Xl) 50 mg PO DAILY [facility] Last Admin: 10/28/17 07:52 Dose: 50 mg Non-Form (Cholestyramine 4 Gm) 0 gm PO BID [facility] Last Admin: 10/28/17 10:34 Dose: 4 gm Ondansetron HCl (Zofran) 4 mg IV Q6H PRN PRN Reason: Nausea/Vomiting Temazepam (Restoril) 15 mg PO BEDTIME PRN PRN Reason: Sleep Vancomycin HCl (Vancocin 125 Mg/2.5 Ml Soln) 125 mg PO QID [facility] Last Admin: 10/28/17 07:55 Dose: 125 mg Warfarin Sodium 2 mg/ Warfarin (Sodium 5 mg) 7 mg PO DAILY [facility] Discontinued Medications Enoxaparin Sodium (Lovenox) 40 mg SUBCUT Q24H [facility] Last Admin: 10/27/17 15:11 Dose: 40 mg Lactated Ringer's (Ringers, Lactated) 1,000 mls @ 500 mls/hr IV .BOLUS ONE Stop: 10/27/17 13:44 Last Admin: 10/27/17 12:07 Dose: 500 mls/hr Lactated Ringer's (Ringers, Lactated) 1,000 mls @ 75 mls/hr IV ASDIRECTED [facility] Last Admin: 10/27/17 20:29 Dose: 75 mls/hr Potassium Chloride 40 meq/ (Premix) 100 mls @ 25 mls/hr IV ONETIME ONE Stop: 10/27/17 18:35 Last Admin: 10/27/17 15:11 Dose: 25 mls/hr Dextrose/Sodium Chloride (Dextrose 5%-1/2 Ns) 1,000 mls @ 125 mls/hr IV ASDIRECTED [facility] Stop: 10/29/17 17:44 Last Admin: 10/28/17 10:02 Dose: 125 mls/hr Potassium Chloride 40 meq/ (Premix) 100 mls @ 12.5 mls/hr IV ONETIME ONE Stop: 10/28/17 17:59 Last Admin: 10/28/17 10:03 Dose: 12.5 mls/hr Potassium Chloride 80 meq/ (Premix) 200 mls @ 12.5 mls/hr IV ONETIME ONE Stop: 10/29/17 03:16 Dextrose/Sodium Chloride (Dextrose 5%-1/2 Ns) 2,000 mls @ 125 mls/hr IV ASDIRECTED [facility] Stop: 10/30/17 01:44 Iopamidol (Isovue-300 (61%)) 100 ml IVPUSH ONETIME ONE Stop: 10/27/17 14:09 Last Admin: 10/27/17 16:21 Dose: 100 ml - Exam Quality Assessment: DVT Prophylaxis (fully anticoagulated) General: Alert, Oriented, No Acute Distress Neck: Supple Lungs: Clear to Auscultation, Normal Respiratory Effort Cardiovascular: Regular Rate, Regular Rhythm, Murmurs GI/Abdominal Exam: Normal Bowel Sounds, Soft, No Distention, Tender (lower). No : Guarding, Rigid, Rebound Back Exam: Normal Inspection, Full Range of Motion Extremities: Normal Inspection, Normal Range of Motion, Non-Tender, No Pedal Edema, Normal Capillary Refill Skin: Warm, Dry, Intact Neurological: No New Focal Deficit Psy/Mental Status: Alert, Normal Affect, Normal Mood - Problem List & Annotations (1) C. difficile diarrhea SNOMED Code(s): 5297169478523 Code(s): A04.72 - ENTEROCOLITIS D/T CLOSTRIDIUM DIFFICILE, NOT SPCF RECUR Status: Acute Current Visit: Yes (2) Colon cancer SNOMED Code(s): 163404421 Code(s): C18.9 - MALIGNANT NEOPLASM OF COLON, UNSPECIFIED Status: Acute Current Visit: Yes Qualifiers: Colon location: unspecified part of colon Qualified Code(s): C18.9 - Malignant neoplasm of colon, unspecified (3) Hypokalemia SNOMED Code(s): 54058553 Code(s): E87.6 - HYPOKALEMIA Status: Acute Current Visit: Yes (4) Weakness SNOMED Code(s): 93217994 Code(s): R53.1 - WEAKNESS Status: Acute Current Visit: Yes (5) Hypertension SNOMED Code(s): 33752224 Code(s): I10 - ESSENTIAL (PRIMARY) HYPERTENSION Status: Acute Current Visit: Yes Qualifiers: Hypertension type: essential hypertension Qualified Code(s): I10 - Essential (primary) hypertension (6) Hypomagnesemia SNOMED Code(s): 576907356 Code(s): E83.42 - HYPOMAGNESEMIA Status: Acute Current Visit: Yes - Problem List Review Problem List Initiated/Reviewed/Updated: Yes - My Orders Last 24 Hours: My Active Orders 10/27/17 12:13 STOOL CULTURE [MREF] Stat 10/27/17 12:41 Abdomen Pelvis w Cont [CT] Stat Chest w Cont [CT] Stat 10/27/17 14:20 Resuscitation Status Routine 10/27/17 14:36 Patient Status [ADT] Routine Cardiac Monitoring [RC] 0800,2000 Intake and Output [RC] 0600,1800 Oxygen Therapy [RC] .PRN Pulse Oximetry [RC] .PRN Up With Assistance [RC] .PRN Vital Signs [RC] 0000,0400,0800,1200,1600,2000 Acetaminophen [Tylenol] 650 mg PO Q4H PRN Ondansetron [Zofran] 4 mg IV Q6H PRN Temazepam [Restoril] 15 mg PO BEDTIME PRN 10/27/17 15:00 Isolation [COMM] Routine 10/27/17 15:25 JANETT Hose [Antiembolic Hose] [OM.PC] Routine 10/27/17 16:00 Vancomycin [Vancocin 125 MG/2.5 ML Soln] 125 mg PO QID 10/27/17 20:00 Hydrochlorothiazide 12.5 mg PO BID Lisinopril [Prinivil] 20 mg PO BID 10/27/17 Dinner Regular Diet [DIET] 10/28/17 08:00 Aspirin [Halfprin] 81 mg PO DAILY Cholecalciferol (Vitamin D3) [Vitamin D3] 5,000 units PO DAILY Finasteride [Proscar] 5 mg PO DAILY Magnesium Oxide 500 mg PO DAILY Metoprolol Succinate [Toprol XL] 50 mg PO DAILY 10/28/17 09:44 Magnesium Sulfate/D5W [Magnesium 1 GM in D5W 100 ML] 2 gm Premix Bag 1 bag IV ONETIME 10/28/17 10:00 Enoxaparin [Lovenox] 60 mg SUBCUT BID 10/28/17 10:30 Cholestyramine/Sucrose [Cholestyramine] 0 gm PO BID 10/28/17 11:26 Dextrose 5%-0.45% NaCl [Dextrose 5%-1/2 NS] 1,000 ml IV ASDIRECTED 10/28/17 11:27 Potassium Chloride [KCL 40 MEQ in Water 100 ML] 40 meq Premix Bag 1 bag IV ONETIME 10/28/17 12:00 Warfarin Sodium 7 MG 7 mg PO DAILY 10/29/17 06:00 BASIC METABOLIC PANEL,BMP [CHEM] DAILY C-REACTIVE PROTEIN [CHEM] DAILY CBC WITH AUTO DIFF [HEME] DAILY INR,PT,PROTHROMBIN TIME [COAG] DAILY 10/30/17 06:00 BASIC METABOLIC PANEL,BMP [CHEM] DAILY C-REACTIVE PROTEIN [CHEM] DAILY CBC WITH AUTO DIFF [HEME] DAILY INR,PT,PROTHROMBIN TIME [COAG] DAILY 10/31/17 06:00 C-REACTIVE PROTEIN [CHEM] DAILY INR,PT,PROTHROMBIN TIME [COAG] DAILY 11/01/17 06:00 INR,PT,PROTHROMBIN TIME [COAG] DAILY 11/02/17 06:00 INR,PT,PROTHROMBIN TIME [COAG] DAILY - Assessment Assessment:: C Diff Pulmonary Emboli Colon Cancer Hypokalemia Hypomagnesia Hypertension - Plan Plan:: Chest CT showed multiple pulmonary emboli. We will start anticoagulation. Will dose Lovenox 60 mg BID until INR is therapeutic. Will start Coumadin today. Daily INR. CT abd/pelvis shows inflammation in colon, suggesting C Diff colitis. WBC improved from 15.7 to 12.7. Continue PO vancomycin for C diff. Potassium down to 2.7 this morning. Will switch IVF to D51/2 NS with 40 meq K x 2 L. This will replace K with total dose of 80 meq over next 16 hours. 2 g magnesium IV. Magnesium down to 1.2 today. Daily labs. I suspect patient will be hospitalized for another day or two.
[2017-10-29] MEDS: [UNRECOGNIZED DRUG - REMARK] PO SCH ×2 (07:26→20:04)
[2017-10-29] MEDS: Enoxaparin 60 MG/0.6 ML Syringe SUBCUT SCH ×2 (07:27→20:04)
[2017-10-29] MEDS: Aspirin 81 MG Tab.EC PO SCH (07:27)
[2017-10-29] MEDS: Hydrochlorothiazide 12.5 MG Cap PO SCH ×2 (07:27→20:05)
[2017-10-29] MEDS: Finasteride 5 MG Tab PO SCH (07:29)
[2017-10-29] MEDS: Lisinopril 20 MG Tab PO SCH ×2 (07:29→20:05)
[2017-10-29] MEDS: Metoprolol Succinate 25 MG Tab.ER PO SCH (07:29)
[2017-10-29] MEDS: Cholecalciferol (Vitamin D3) 1,000 Unit Tab PO SCH (07:30)
[2017-10-29] MEDS: Vancomycin 125 MG/2.5 ML Oral Solution 2.5 ML UD Cup PO SCH ×4 (07:30→20:05)
--- NOTE | 2017-10-29 08:05 | PCM.PN ---
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 He does continue to have diarrhea. He feels it is maybe getting a little less watery. He reports he did get up a couple times through the night to have stool. He reports his abdominal pain has improved. Denies any other concerns. Functional Status: Reports: Pain Controlled, Tolerating Diet, Ambulating, Urinating. Denies: New Symptoms - Review of Systems General: Denies: Fever, Weakness, Fatigue, Chills HEENT: Reports: No Symptoms Pulmonary: Reports: No Symptoms. Denies: Shortness of Breath, Cough, Sputum, Hemoptysis, Wheezing Cardiovascular: Reports: No Symptoms. Denies: Chest Pain, Dyspnea on Exertion, Lightheadedness Gastrointestinal: Reports: Diarrhea. Denies: Abdominal Pain, Decreased Appetite , Hematochezia, Melena, Nausea, Vomiting Genitourinary: Reports: No Symptoms. Denies: Dysuria, Frequency, Urgency, Incontinence Musculoskeletal: Reports: No Symptoms Skin: Reports: No Symptoms Neurological: Reports: No Symptoms Psychiatric: Reports: No Symptoms - Patient Data Vitals - Most Recent: Last Vital Signs Temp 97.8 F 10/29/17 04:00 Pulse 77 10/29/17 07:29 Resp 18 10/29/17 04:00 BP 107/58 L 10/29/17 07:29 Pulse Ox 95 10/29/17 04:00 Weight - Most Recent: 159 lb 1.6 oz I&O - Last 24 Hours: Intake & Output 10/28/17 10/29/17 10/29/17 22:59 06:59 14:59 Intake Total 1430 400 Output Total 1000 900 Balance 430 -500 Lab Results Last 24 Hours: Laboratory Results - last 24 hr 10/28/17 10/29/17 10/29/17 Range/Units 07:00 07:05 07:05 WBC 11.3 H (5.0-10.0) 10^3/uL RBC 3.06 L (4.50-6.00) 10^6/uL Hgb 9.3 L (14.0-18.0) g/dL Hct 27.8 L (40.0-54.0) % MCV 90.8 (82.0-94.0) fL MCH 30.4 (27.0-32.0) pg MCHC 33.5 (33.0-38.0) g/dL RDW Coeff of Yes[place] 22.6 H (11.0-15.0) % Plt Count 287 (150-400) 10^3/uL Neut % (Auto) 72.1 (35-85) % Lymph % (Auto) 13.6 (10-55) % [place] % (Auto) 11.6 (0-16) % Eos % (Auto) 2.3 (0-5) % Baso % (Auto) 0.4 (0-3) % Neut # (Auto) 8.11 H (1.80-7.00) 10^3/uL Lymph # (Auto) 1.53 (1.00-4.80) 10^3/uL [place] # (Auto) 1.31 H (0.00-0.80) 10^3/uL Eos # (Auto) 0.26 (0.00-0.45) 10^3/uL Baso # (Auto) 0.04 10^3/uL PT (9.7-12.3) SEC INR (0.92-1.18) Sodium 136 135 L (136-145) mEq/L Potassium 2.7 L* 2.7 L* (3.5-5.0) mEq/L Chloride 99 101 (98-106) mEq/L Carbon Dioxide 28 25 (21-32) mmol/L BUN 16 8 (7-18) mg/dL Creatinine 1.3 1.2 (0.7-1.3) mg/dL Est Cr Clr Drug Dosing 39.28 42.55 mL/min Estimated GFR (MDRD) 52 L 57 L (>=60) mL/min Glucose 132 H 107 H (75-99) mg/dL Calcium 8.5 7.7 L (8.4-10.1) mg/dL Magnesium 1.2 L (1.8-2.4) mg/dL C-Reactive Protein 2.8 H (0.2-0.8) mg/dL 18 Range/Units 07:05 WBC (5.0-10.0) 10^3/uL RBC (4.50-6.00) 10^6/uL Hgb (14.0-18.0) g/dL Hct (40.0-54.0) % MCV (82.0-94.0) fL MCH (27.0-32.0) pg MCHC (33.0-38.0) g/dL RDW Coeff of [place] (11.0-15.0) % Plt Count (150-400) 10^3/uL Neut % (Auto) (35-85) % Lymph % (Auto) (10-55) % [place] % (Auto) (0-16) % Eos % (Auto) (0-5) % Baso % (Auto) (0-3) % Neut # (Auto) (1.80-7.00) 10^3/uL Lymph # (Auto) (1.00-4.80) 10^3/uL [place] # (Auto) (0.00-0.80) 10^3/uL Eos # (Auto) (0.00-0.45) 10^3/uL Baso # (Auto) 10^3/uL PT 14.1 H (9.7-12.3) SEC INR 1.39 H (0.92-1.18) Sodium (136-145) mEq/L Potassium (3.5-5.0) mEq/L Chloride (98-106) mEq/L Carbon Dioxide (21-32) mmol/L BUN (7-18) mg/dL Creatinine (0.7-1.3) mg/dL Est Cr Clr Drug Dosing mL/min Estimated GFR (MDRD) (>=60) mL/min Glucose (75-99) mg/dL Calcium (8.4-10.1) mg/dL Magnesium (1.8-2.4) mg/dL C-Reactive Protein (0.2-0.8) mg/dL Med Orders - Current: Current Medications Acetaminophen (Tylenol) 650 mg PO Q4H PRN PRN Reason: Pain (Mild 1-3)/fever Aspirin (Halfprin) 81 mg PO DAILY [facility] Last Admin: 10/29/17 07:27 Dose: 81 mg Cholecalciferol (Vitamin D3) 5,000 units PO DAILY [facility] [place] Last Admin: 10/29/17 07:30 Dose: 5,000 units Enoxaparin Sodium (Lovenox) 60 mg SUBCUT BID [facility] Last Admin: 10/29/17 07:27 Dose: 60 mg Finasteride (Proscar) 5 mg PO DAILY [facility] [place] Last Admin: 10/29/17 07:29 Dose: 5 mg Hydrochlorothiazide (Hydrochlorothiazide) 12.5 mg PO BID [facility] Last Admin: 10/29/17 07:27 Dose: 12.5 mg Dextrose/Sodium Chloride (Dextrose 5%-1/2 Ns) 1,000 mls @ 100 mls/hr IV ASDIRECTED [facility] Potassium Chloride 40 meq/ (Premix) 100 mls @ 10 mls/hr IV STAT [facility] Stop: 10/30/17 17:59 Lisinopril (Prinivil) 20 mg PO BID [facility] Last Admin: 10/29/17 07:29 Dose: 20 mg Magnesium Oxide (Magnesium Oxide) 500 mg PO DAILY [facility] Last Admin: 10/29/17 07:28 Dose: 500 mg Metoprolol Succinate (Toprol Xl) 50 mg PO DAILY [facility] Last Admin: 10/29/17 07:29 Dose: 50 mg Non-Form (Cholestyramine 4 Gm) 0 gm PO BID [facility] Last Admin: 10/29/17 07:26 Dose: 4 gm Ondansetron HCl (Zofran) 4 mg IV Q6H PRN PRN Reason: Nausea/Vomiting Potassium Chloride (Klor-Con 10) 40 meq PO DAILY [facility] Temazepam (Restoril) 15 mg PO BEDTIME PRN PRN Reason: Sleep Vancomycin HCl (Vancocin 125 Mg/2.5 Ml Soln) 125 mg PO QID [facility] Last Admin: 10/29/17 07:30 Dose: 125 mg Warfarin Sodium 2 mg/ Warfarin (Sodium 5 mg) 7 mg PO DAILY [facility] [place] Last Admin: 10/29/17 07:57 Dose: 7 mg Discontinued Medications Enoxaparin Sodium (Lovenox) 40 mg SUBCUT Q24H [facility] [place] Last Admin: 10/27/17 15:11 Dose: 40 mg Lactated Ringer's (Ringers, Lactated) 1,000 mls @ 500 mls/hr IV .BOLUS ONE Stop: 10/27/17 13:44 Last Admin: 10/27/17 12:07 Dose: 500 mls/hr Lactated Ringer's (Ringers, Lactated) 1,000 mls @ 75 mls/hr IV ASDIRECTED [facility] Last Admin: 10/27/17 20:29 Dose: 75 mls/hr Potassium Chloride 40 meq/ (Premix) 100 mls @ 25 mls/hr IV ONETIME ONE Stop: 10/27/17 18:35 Last Admin: 10/27/17 15:11 Dose: 25 mls/hr Dextrose/Sodium Chloride (Dextrose 5%-1/2 Ns) 1,000 mls @ [facility]: 10/29/17 17:44 Last Admin: 10/28/17 10:02 Dose: 125 mls/hr Magnesium Sulfate/Dextrose 2 (gm/ Premix) 200 mls @ 100 mls/hr IV ONETIME ONE Stop: 10/28/17 11:43 Last Admin: 10/28/17 10:12 Dose: 100 mls/hr Potassium Chloride 40 meq/ (Premix) 100 mls @ 12.5 mls/hr IV ONETIME ONE Stop: 10/28/17 17:59 Last Admin: 10/28/17 10:03 Dose: 12.5 mls/hr Potassium Chloride 80 meq/ (Premix) 200 mls @ 12.5 mls/hr IV ONETIME ONE Stop: 10/29/17 03:16 Last Admin: 10/28/17 11:54 Dose: Not Given Dextrose/Sodium Chloride (Dextrose 5%-1/2 Ns) 2,000 mls @ 125 [facility]ls[facility]: 10/30/17 01:44 Last Admin: 10/28/17 11:54 Dose: Not Given Dextrose/Sodium Chloride (Dextrose 5%-1/2 Ns) 1,000 mls @ [facility]: 10/28/17 19:17 Last Admin: 10/28/17 11:37 Dose: Not Given Potassium Chloride 40 meq/ (Premix) 100 mls @ 12.5 mls/hr IV ONETIME ONE Stop: 10/28/17 19:16 Last Admin: 10/28/17 11:39 Dose: Not Given Dextrose/Sodium Chloride (Dextrose 5%-1/2 Ns) 1,000 mls @ 125 mls/hr IV ONETIME ONE Stop: 10/28/17 19:29 Last Admin: 10/28/17 11:56 Dose: Not Given Potassium Chloride 40 meq/ (Premix) 100 mls @ 12.5 mls/hr IV ONETIME ONE Stop: 10/28/17 19:44 Potassium Chloride 40 meq/ (Premix) 100 mls @ 12.5 mls/hr IV ONETIME ONE Stop: 10/29/17 01:59 Last Admin: 10/28/17 17:32 Dose: 12.5 mls/hr Dextrose/Sodium Chloride (Dextrose 5%-1/2 Ns) 1,000 mls @ 125 mls/hr IV ONETIME ONE Stop: 10/29/17 01:59 Last Admin: 10/28/17 17:30 Dose: 125 mls/hr Iopamidol (Isovue-300 (61%)) 100 ml IVPUSH ONETIME ONE Stop: 10/27/17 14:09 Last Admin: 10/27/17 16:21 Dose: 100 ml - Exam General: Alert, Oriented, No Acute Distress Neck: Supple Lungs: Clear to Auscultation, Normal Respiratory Effort Cardiovascular: Regular Rate, Regular Rhythm, Other (occassional PVCs) GI/Abdominal Exam: Normal Bowel Sounds, Soft, Non-Tender, No Distention. No: Guarding, Rigid, Rebound, Tender Back Exam: Normal Inspection, Full Range of Motion Extremities: Normal Inspection, Normal Range of Motion, Non-Tender, No Pedal Edema, Normal Capillary Refill Skin: Warm, Dry, Intact Neurological: No New Focal Deficit Psy/Mental Status: Alert, Normal Affect, Normal Mood - Problem List & Annotations (1) C. difficile diarrhea SNOMED Code(s): 6321000550735 Code(s): A04.72 - ENTEROCOLITIS D/T CLOSTRIDIUM DIFFICILE, NOT SPCF RECUR Status: Acute Current Visit: Yes (2) Colon cancer SNOMED Code(s): 780950400 Code(s): C18.9 - MALIGNANT NEOPLASM OF COLON, UNSPECIFIED Status: Acute Current Visit: Yes Qualifiers: Colon location: unspecified part of colon Qualified Code(s): C18.9 - Malignant neoplasm of colon, unspecified (3) Hypokalemia SNOMED Code(s): 12193202 Code(s): E87.6 - HYPOKALEMIA Status: Acute Current Visit: Yes (4) Weakness SNOMED Code(s): 08279406 Code(s): R53.1 - WEAKNESS Status: Acute Current Visit: Yes (5) Hypertension SNOMED Code(s): 39866811 Code(s): I10 - ESSENTIAL (PRIMARY) HYPERTENSION Status: Acute Current Visit: Yes Qualifiers: Hypertension type: essential hypertension Qualified Code(s): I10 - Essential (primary) hypertension (6) Hypomagnesemia SNOMED Code(s): 488572295 Code(s): E83.42 - HYPOMAGNESEMIA Status: Acute Current Visit: Yes - Problem List Review Problem List Initiated/Reviewed/Updated: Yes - My Orders Last 24 Hours: My Active Orders 10/28/17 08:00 Aspirin [Halfprin] 81 mg PO DAILY Cholecalciferol (Vitamin D3) [Vitamin D3] 5,000 units PO DAILY Finasteride [Proscar] 5 mg PO DAILY Magnesium Oxide 500 mg PO DAILY Metoprolol Succinate [Toprol XL] 50 mg PO DAILY 10/28/17 10:00 Enoxaparin [Lovenox] 60 mg SUBCUT BID 10/28/17 10:30 Cholestyramine/Sucrose [Cholestyramine] 0 gm PO BID 10/28/17 12:00 Warfarin Sodium 7 MG 7 mg PO DAILY 10/29/17 08:00 Dextrose 5%-1/2 Normal Saline @ 100 MLS/HR(1000ml) Dextrose 5%-0.45% NaCl [ Dextrose 5%-1/2 NS] 1,000 ml IV ASDIRECTED Potassium Chloride [KCL 40 MEQ in Water 100 ML] 40 meq Premix Bag 1 bag IV STAT Potassium Chloride [Klor-Con 10] 40 meq PO DAILY 10/30/17 06:00 BASIC METABOLIC PANEL,BMP [CHEM] DAILY C-REACTIVE PROTEIN [CHEM] DAILY CBC WITH AUTO DIFF [HEME] DAILY INR,PT,PROTHROMBIN TIME [COAG] DAILY 10/31/17 06:00 C-REACTIVE PROTEIN [CHEM] DAILY INR,PT,PROTHROMBIN TIME [COAG] DAILY 11/01/17 06:00 INR,PT,PROTHROMBIN TIME [COAG] DAILY 11/02/17 06:00 INR,PT,PROTHROMBIN TIME [COAG] DAILY - Assessment Assessment:: C Diff Pulmonary Emboli Colon Cancer Hypokalemia Hypomagnesia Hypertension - Plan Plan:: 10/28/[address] showed multiple right pulmonary emboli. We will start anticoagulation. Will dose Lovenox 60 mg BID until INR is therapeutic. Will start Coumadin today. Daily INR. CT abd/pelvis shows inflammation in colon, suggesting C Diff colitis. WBC improved from 15.7 to 12.7. Continue PO vancomycin for C diff. Potassium down to 2.7 this morning. Will switch IVF to D51/2 NS with 40 meq K x 2 L. This will replace K with total dose of 80 meq over next 16 hours. 2 g magnesium IV. Magnesium down to 1.2 today. Daily labs. I suspect patient will be hospitalized for another day or two. 10/29/2017 INR 1.39 today. Will dose coumadin 7 mg today. Continue Lovenox until INR therapeutic. Recheck INR tomorrow. WBC improving. Down to 11.3 today. Patient's stooling frequency gradually decreasing. Had 4 loose stools last night. HGB down some, however I feel this is dilution. CRP trending down. 2.2 today. Potassium remains critically low, at 2.7 today, despite 80 meq supplement total yesterday. Suspect this is relation to diarrhea. He also reports his K has been around 3.0 with chemotherapy. Will replace with 40 meq x 2 today as well. Will also start 40 meq daily supplement. Continue IVF. Magnesium 1.4 today. Up from 1.2. Replaced 2 g IV mag sulfate. Will repeat today. Daily labs. Encourage ambulation today.
[2017-10-29] MEDS ORDERED: Potassium Chloride 40 MEQ in Premix Bag 1 BAG IV STA (08:23)
[2017-10-29] MEDS: Dextrose 5%-0.45% NaCl 1,000 ML IV SCH ×2 (08:43→18:09)
[2017-10-29] MEDS: Potassium Chloride 10 MEQ Tab.ER PO SCH (08:47)
[2017-10-29] MEDS ORDERED: MAGNESIUM SULFATE IV ONE (09:44)
[2017-10-29] MEDS ORDERED: D5W IV ONE (09:44)
[2017-10-29] MEDS ORDERED: Potassium Chloride 40 MEQ in Premix Bag 1 BAG IV ONE (18:00)
[2017-10-29] MEDS ORDERED: Dextrose 5%-0.45% NaCl 1,000 ML IV ONE (18:00)
[2017-10-30] MEDS: Dextrose 5%-0.45% NaCl 1,000 ML IV SCH ×2 (04:21→14:57)
[2017-10-30 07:06] LABS: CHLORIDE,CL 101 mEq/L (98-106); SODIUM,NA 133 mEq/L (136-145)
[2017-10-30] MEDS: Cholecalciferol (Vitamin D3) 1,000 Unit Tab PO SCH (08:01)
[2017-10-30] MEDS: Potassium Chloride 10 MEQ Tab.ER PO SCH (08:01)
[2017-10-30] MEDS: Aspirin 81 MG Tab.EC PO SCH (08:02)
[2017-10-30] MEDS: Lisinopril 20 MG Tab PO SCH ×2 (08:03→19:25)
[2017-10-30] MEDS: Hydrochlorothiazide 12.5 MG Cap PO SCH ×2 (08:03→19:25)
[2017-10-30] MEDS: Enoxaparin 60 MG/0.6 ML Syringe SUBCUT SCH (08:03)
[2017-10-30] MEDS: Finasteride 5 MG Tab PO SCH (08:03)
[2017-10-30] MEDS: [UNRECOGNIZED DRUG - REMARK] PO SCH ×2 (08:04→19:22)
[2017-10-30] MEDS: Vancomycin 125 MG/2.5 ML Oral Solution 2.5 ML UD Cup PO SCH ×4 (08:06→19:25)
[2017-10-30] MEDS: Metoprolol Succinate 25 MG Tab.ER PO SCH (08:08)
--- NOTE | 2017-10-30 08:57 | PCM.PN ---
- General Info Date of Service: 10/30/17 Admission Dx/Problem (Free Text): C Diff Subjective Update: Patient reports he is feeling much better today. Reports his stools are slowing down. He denies any abdominal pain or tenderness. Reports he has been eating well. Denies any chest pain or shortness of breath. Functional Status: Reports: Pain Controlled, Tolerating Diet, Ambulating, Urinating. Denies: New Symptoms - Review of Systems General: Denies: Fever, Weakness, Fatigue, Chills HEENT: Reports: No Symptoms Pulmonary: Reports: No Symptoms. Denies: Shortness of Breath, Pleuritic Chest Pain, Cough, Sputum, Wheezing Cardiovascular: Reports: No Symptoms. Denies: Chest Pain, Dyspnea on Exertion, Lightheadedness Gastrointestinal: Reports: Diarrhea, Flatus. Denies: Abdominal Pain, Decreased Appetite, Hematochezia, Melena, Nausea, Vomiting Genitourinary: Reports: No Symptoms Musculoskeletal: Reports: No Symptoms Skin: Reports: No Symptoms Neurological: Reports: No Symptoms Psychiatric: Reports: No Symptoms - Patient Data Vitals - Most Recent: Last Vital Signs Temp 97.6 F 10/30/17 07:31 Pulse 74 10/30/17 08:08 Resp 16 10/30/17 07:31 BP 119/57 L 10/30/17 08:08 Pulse Ox 96 10/30/17 07:31 Weight - Most Recent: 159 lb 1.6 oz I&O - Last 24 Hours: Intake & Output 10/29/17 10/30/17 10/30/17 22:59 06:59 14:59 Intake Total 2223 1250 Output Total 900 1300 Balance 1323 -50 Lab Results Last 24 Hours: Laboratory Results - last 24 hr 10/30/17 10/30/17 10/30/17 Range/Units 06:50 06:50 06:50 WBC 8.7 (5.0-10.0) 10^3/uL RBC 2.96 L (4.50-6.00) 10^6/uL Hgb 9.0 L (14.0-18.0) g/dL Hct 27.1 L (40.0-54.0) % MCV 91.6 (82.0-94.0) fL MCH 30.4 (27.0-32.0) pg MCHC 33.2 (33.0-38.0) g/dL RDW Coeff of Yesica 22.4 H (11.0-15.0) % Plt Count 251 (150-400) 10^3/uL Neut % (Auto) 68.7 (35-85) % Lymph % (Auto) 15.9 (10-55) % Routt % (Auto) 11.6 (0-16) % Eos % (Auto) 3.3 (0-5) % Baso % (Auto) 0.5 (0-3) % Neut # (Auto) 5.97 (1.80-7.00) 10^3/uL Lymph # (Auto) 1.38 (1.00-4.80) 10^3/uL Routt # (Auto) 1.01 H (0.00-0.80) 10^3/uL Eos # (Auto) 0.29 (0.00-0.45) 10^3/uL Baso # (Auto) 0.04 10^3/uL PT 39.4 H (9.7-12.3) SEC INR 4.21 H* (0.92-1.18) Sodium 133 L (136-145) mEq/L Potassium 3.5 D (3.5-5.0) mEq/L Chloride 101 (98-106) mEq/L Carbon Dioxide 25 (21-32) mmol/L BUN 5 L (7-18) mg/dL Creatinine 1.1 (0.7-1.3) mg/dL Est Cr Clr Drug Dosing 46.42 mL/min Estimated GFR (MDRD) > 60 (>=60) mL/min Glucose 110 H (75-99) mg/dL Calcium 7.7 L (8.4-10.1) mg/dL Magnesium 1.5 L (1.8-2.4) mg/dL C-Reactive Protein 1.5 H (0.2-0.8) mg/dL Logan Results Last 24 Hours: Microbiology 10/27/17 12:13 Stool Aerobic Culture - Preliminary Stool / Feces Med Orders - Current: Current Medications Acetaminophen (Tylenol) 650 mg PO Q4H PRN PRN Reason: Pain (Mild 1-3)/fever Aspirin (Halfprin) 81 mg PO DAILY MANDO Last Admin: 10/30/17 08:02 Dose: 81 mg Cholecalciferol (Vitamin D3) 5,000 units PO DAILY [facility] Last Admin: 10/30/17 08:01 Dose: 5,000 units Enoxaparin Sodium (Lovenox) 60 mg SUBCUT BID [facility] Last Admin: 10/30/17 08:03 Dose: Not Given Finasteride (Proscar) 5 mg PO DAILY [facility] Last Admin: 10/30/17 08:03 Dose: 5 mg Hydrochlorothiazide (Hydrochlorothiazide) 12.5 mg PO BID [facility] Last Admin: 10/30/17 08:03 Dose: 12.5 mg Dextrose/Sodium Chloride (Dextrose 5%-1/2 Ns) 1,000 mls @ 100 mls/hr IV ASDIRECTED [facility] Last Admin: 10/30/17 04:21 Dose: 100 mls/hr Lisinopril (Prinivil) 20 mg PO BID [facility] Last Admin: 10/30/17 08:03 Dose: 20 mg Magnesium Oxide (Magnesium Oxide) 500 mg PO DAILY [facility] Last Admin: 10/30/17 08:00 Dose: 500 mg Metoprolol Succinate (Toprol Xl) 50 mg PO DAILY [facility] Last Admin: 10/30/17 08:08 Dose: 50 mg Non-Form (Cholestyramine 4 Gm) 0 gm PO BID [facility] Last Admin: 10/30/17 08:04 Dose: 4 gm Ondansetron HCl (Zofran) 4 mg IV Q6H PRN PRN Reason: Nausea/Vomiting Potassium Chloride (Klor-Con 10) 40 meq PO DAILY [facility] Last Admin: 10/30/17 08:01 Dose: 40 meq Temazepam (Restoril) 15 mg PO BEDTIME PRN PRN Reason: Sleep Vancomycin HCl (Vancocin 125 Mg/2.5 Ml Soln) 125 mg PO QID [facility] Last Admin: 10/30/17 08:06 Dose: 125 mg Discontinued Medications Enoxaparin Sodium (Lovenox) 40 mg SUBCUT Q24H [facility] Last Admin: 10/27/17 15:11 Dose: 40 mg Lactated Ringer's (Ringers, Lactated) 1,000 mls @ 500 mls/hr IV .BOLUS ONE Stop: 10/27/17 13:44 Last Admin: 10/27/17 12:07 Dose: 500 mls/hr Lactated Ringer's (Ringers, Lactated) 1,000 mls @ 75 mls/hr IV ASDIRECTED [facility] Last Admin: 10/27/17 20:29 Dose: 75 mls/hr Potassium Chloride 40 meq/ (Premix) 100 mls @ 25 mls/hr IV ONETIME ONE Stop: 10/27/17 18:35 Last Admin: 10/27/17 15:11 Dose: 25 mls/hr Dextrose/Sodium Chloride (Dextrose 5%-1/2 Ns) 1,000 mls @ 125 [facility]ls[facility] Stop: 10/29/17 17:44 Last Admin: 10/28/17 10:02 Dose: 125 mls/hr Magnesium Sulfate/Dextrose 2 (gm/ Premix) 200 mls @ 100 mls/hr IV ONETIME ONE Stop: 10/28/17 11:43 Last Admin: 10/28/17 10:12 Dose: 100 mls/hr Potassium Chloride 40 meq/ (Premix) 100 mls @ 12.5 mls/hr IV ONETIME ONE Stop: 10/28/17 17:59 Last Admin: 10/28/17 10:03 Dose: 12.5 mls/hr Potassium Chloride 80 meq/ (Premix) 200 mls @ 12.5 mls/hr IV ONETIME ONE Stop: 10/29/17 03:16 Last Admin: 10/28/17 11:54 Dose: Not Given Dextrose/Sodium Chloride (Dextrose 5%-1/2 Ns) 2,000 mls @ 125 mls[facility] Stop: 10/30/17 01:44 Last Admin: 10/28/17 11:54 Dose: Not Given Dextrose/Sodium Chloride (Dextrose 5%-1/2 Ns) 1,000 mls @ 125 mls[facility] Stop: 10/28/17 19:17 Last Admin: 10/28/17 11:37 Dose: Not Given Potassium Chloride 40 meq/ (Premix) 100 mls @ 12.5 mls/hr IV ONETIME ONE Stop: 10/28/17 19:16 Last Admin: 10/28/17 11:39 Dose: Not Given Dextrose/Sodium Chloride (Dextrose 5%-1/2 Ns) 1,000 mls @ 125 mls/hr IV ONETIME ONE Stop: 10/28/17 19:29 Last Admin: 10/28/17 11:56 Dose: Not Given Potassium Chloride 40 meq/ (Premix) 100 mls @ 12.5 mls/hr IV ONETIME ONE Stop: 10/28/17 19:44 Potassium Chloride 40 meq/ (Premix) 100 mls @ 12.5 mls/hr IV ONETIME ONE Stop: 10/29/17 01:59 Last Admin: 10/28/17 17:32 Dose: 12.5 mls/hr Dextrose/Sodium Chloride (Dextrose 5%-1/2 Ns) 1,000 mls @ 125 mls/hr IV ONETIME ONE Stop: 10/29/17 01:59 Last Admin: 10/28/17 17:30 Dose: 125 mls/hr Potassium Chloride 40 meq/ (Premix) 100 mls @ 10 mls/hr IV STAT STA Stop: 10/29/17 18:22 Last Admin: 10/29/17 08:48 Dose: 10 mls/hr Dextrose/Sodium Chloride (Dextrose 5%-1/2 Ns) 1,000 mls @ 100 mls/hr IV ONETIME ONE Stop: 10/30/17 03:59 Potassium Chloride 40 meq/ (Premix) 100 mls @ 10 mls/hr IV ONETIME ONE Stop: 10/30/17 03:59 Last Admin: 10/29/17 18:11 Dose: 10 mls/hr Magnesium Sulfate/Dextrose 2 (gm/ Premix) 200 mls @ 100 mls/hr IV ONETIME ONE Stop: 10/29/17 11:43 Last Admin: 10/29/17 09:53 Dose: 100 mls/hr Iopamidol (Isovue-300 (61%)) 100 ml IVPUSH ONETIME ONE Stop: 10/27/17 14:09 Last Admin: 10/27/17 16:21 Dose: 100 ml Warfarin Sodium 2 mg/ Warfarin (Sodium 5 mg) 7 mg PO DAILY MANDO Last Admin: 10/29/17 07:57 Dose: 7 mg - Exam Quality Assessment: DVT Prophylaxis General: Alert, Oriented, No Acute Distress Neck: Supple Lungs: Clear to Auscultation, Normal Respiratory Effort Cardiovascular: Regular Rate, Regular Rhythm GI/Abdominal Exam: Normal Bowel Sounds, Soft, Non-Tender, No Organomegaly, No Distention, No Abnormal Bruit, No Mass, Pelvis Stable Extremities: Normal Inspection, Normal Range of Motion, Non-Tender, No Pedal Edema, Normal Capillary Refill Skin: Warm, Dry, Intact Neurological: No New Focal Deficit Psy/Mental Status: Alert, Normal Affect, Normal Mood - Problem List & Annotations (1) C. difficile diarrhea SNOMED Code(s): 0595527737739 Code(s): A04.72 - ENTEROCOLITIS D/T CLOSTRIDIUM DIFFICILE, NOT SPCF RECUR Status: Acute Current Visit: Yes (2) Colon cancer SNOMED Code(s): 993895079 Code(s): C18.9 - MALIGNANT NEOPLASM OF COLON, UNSPECIFIED Status: Acute Current Visit: Yes Qualifiers: Colon location: unspecified part of colon Qualified Code(s): C18.9 - Malignant neoplasm of colon, unspecified (3) Hypokalemia SNOMED Code(s): 59318814 Code(s): E87.6 - HYPOKALEMIA Status: Acute Current Visit: Yes (4) Weakness SNOMED Code(s): 55186053 Code(s): R53.1 - WEAKNESS Status: Acute Current Visit: Yes (5) Hypertension SNOMED Code(s): 74068522 Code(s): I10 - ESSENTIAL (PRIMARY) HYPERTENSION Status: Acute Current Visit: Yes Qualifiers: Hypertension type: essential hypertension Qualified Code(s): I10 - Essential (primary) hypertension (6) Hypomagnesemia SNOMED Code(s): 606839393 Code(s): E83.42 - HYPOMAGNESEMIA Status: Acute Current Visit: Yes - Problem List Review Problem List Initiated/Reviewed/Updated: Yes - My Orders Last 24 Hours: My Active Orders 10/29/17 08:00 Dextrose 5%-0.45% NaCl [Dextrose 5%-1/2 NS] 1,000 ml IV ASDIRECTED Potassium Chloride [Klor-Con 10] 40 meq PO DAILY 10/31/17 06:00 C-REACTIVE PROTEIN [CHEM] DAILY INR,PT,PROTHROMBIN TIME [COAG] DAILY 11/01/17 06:00 INR,PT,PROTHROMBIN TIME [COAG] DAILY 11/02/17 06:00 INR,PT,PROTHROMBIN TIME [COAG] DAILY - Assessment Assessment:: C Diff Pulmonary Emboli Colon Cancer Hypokalemia Hypomagnesia Hypertension - Plan Plan:: 10/28/[address] showed multiple right pulmonary emboli. We will start anticoagulation. Will dose Lovenox 60 mg BID until INR is therapeutic. Will start Coumadin today. Daily INR. CT abd/pelvis shows inflammation in colon, suggesting C Diff colitis. WBC improved from 15.7 to 12.7. Continue PO vancomycin for C diff. Potassium down to 2.7 this morning. Will switch IVF to D51/2 NS with 40 meq K x 2 L. This will replace K with total dose of 80 meq over next 16 hours. 2 g magnesium IV. Magnesium down to 1.2 today. Daily labs. I suspect patient will be hospitalized for another day or two. 10/29/2017 INR 1.39 today. Will dose coumadin 7 mg today. Continue Lovenox until INR therapeutic. Recheck INR tomorrow. WBC improving. Down to 11.3 today. Patient's stooling frequency gradually decreasing. Had 4 loose stools last night. HGB down some, however I feel this is dilution. CRP trending down. 2.2 today. Potassium remains critically low, at 2.7 today, despite 80 meq supplement total yesterday. Suspect this is relation to diarrhea. He also reports his K has been around 3.0 with chemotherapy. Will replace with 40 meq x 2 today as well. Will also start 40 meq daily supplement. Continue IVF. Magnesium 1.4 today. Up from 1.2. Replaced 2 g IV mag sulfate. Will repeat today. Daily labs. Encourage ambulation today. 10/30/2017 Patient reports his stools are decreasing. Denies any abdominal pain. Has been eating well. INR increased drastically to 4.21. Will hold coumadin and stop lovenox. Recheck INR tomorrow. WBC normal at 8.7. CRP trending down, 1.5 today. Continue PO Vanco for total of 10 days. Stool culture negative. Potassium improved to 3.5. Magnesium up to 1.5. Continue daily PO supplements. Patient will likely discharge home tomorrow. Will recheck labs in am.
[2017-10-31] MEDS: Dextrose 5%-0.45% NaCl 1,000 ML IV SCH (01:05)
[2017-10-31 07:46] LABS: CHLORIDE,CL 102 mEq/L (98-106); SODIUM,NA 136 mEq/L (136-145)
[2017-10-31] MEDS: Aspirin 81 MG Tab.EC PO SCH (08:02)
[2017-10-31] MEDS: Cholecalciferol (Vitamin D3) 1,000 Unit Tab PO SCH (08:02)
[2017-10-31] MEDS: Lisinopril 20 MG Tab PO SCH (08:03)
[2017-10-31] MEDS: Metoprolol Succinate 25 MG Tab.ER PO SCH (08:03)
[2017-10-31] MEDS: Finasteride 5 MG Tab PO SCH (08:04)
[2017-10-31] MEDS: Potassium Chloride 10 MEQ Tab.ER PO SCH (08:04)
[2017-10-31] MEDS: Hydrochlorothiazide 12.5 MG Cap PO SCH (08:04)
[2017-10-31] MEDS: Vancomycin 125 MG/2.5 ML Oral Solution 2.5 ML UD Cup PO SCH ×2 (08:05→12:06)
[2017-10-31] MEDS: [UNRECOGNIZED DRUG - REMARK] PO SCH (08:08)
[2017-10-31] MEDS ORDERED: Glucagon,Human Recombinant 1 MG Vial IVPUSH ONE (09:31)
[2017-10-31] MEDS ORDERED: Pantoprazole 40 MG Vial IVPUSH SCH (09:45)
--- NOTE | 2017-10-31 10:35 | PCM.DCSUM1 ---
Discharge Summary - Hospital Course HPI Initial Comments: Harshal is a pleasant 87 year old male, with PMH including colon cancer, who was admitted to the hospital from the ED on 10/27/2017 with C Diff , pulmonary emboli, and hypokalemia. He originally presented with c/o 6 loose stools and some dull abdominal pain. He had spoke with his oncologist, who recommended he be evaluated in the ED. Oncology recommended a CT of chest, abdomen, and pelvis. Incidentally we did identify PE on chest CT. He was started on PO vancomycin for C diff. He was also started on Coumadin therapy for PEs and was bridged with Lovenox until INR > 2. Patient received one dose of 7 mg Coumadin and his INR drastically increased. This was suspected to be from vancomycin use. Coumadin was then held remainder of stay. Patient INR elevated to 5.56 on day of discharge. Did discuss with Dr. Valladares who recommended holding Coumadin and recheck labs and see him in clinic Thursday11/02/2017. Patient did improve throughout hospital stay. CRP trended down throughout stay, as did WBCs. At time of discharge his WBC was 7.7 and CRP was 0.8. His stools gradually decreased in frequency. At the time of discharge he was feeling much better. Stooling was down to a couple stools/day. His abdominal pain had resolved. We struggled to keep his potassium stable. Throughout stay he was given total of 120 meq IV KCL. He was started on 40 meq BID of oral potassium as well. Once stooling decreased, his potassium was stable. K was 3.3 at time of discharge. Harshal will be discharged home on an additional 5 days of PO vancomycin QID. We will also send him home on 40 meq K BID. Patient to follow up with Dr. Valladares on Thursday11/02/2017. He will call clinic Thursday morning to set up appointment time. We will recheck BMP and INR prior to appointment. He is to notify his oncologist and follow up with him as advised. Patient had no additional questions or concerns at time of discharge. He was agreeable with plan. - Discharge Data Discharge Date: 10/31/17 Discharge Disposition: Home, Self-Care 01 Condition: Good - Discharge Diagnosis/Problem(s) (1) C. difficile diarrhea SNOMED Code(s): 6564207303902 ICD Code: A04.72 - ENTEROCOLITIS D/T CLOSTRIDIUM DIFFICILE, NOT SPCF RECUR Status: Acute (2) Colon cancer SNOMED Code(s): 905895763 ICD Code: C18.9 - MALIGNANT NEOPLASM OF COLON, UNSPECIFIED Status: Acute Qualifiers: Colon location: unspecified part of colon Qualified Code(s): C18.9 - Malignant neoplasm of colon, unspecified (3) Hypokalemia SNOMED Code(s): 24800322 ICD Code: E87.6 - HYPOKALEMIA Status: Acute (4) Weakness SNOMED Code(s): 89742434 ICD Code: R53.1 - WEAKNESS Status: Acute (5) Hypertension SNOMED Code(s): 98679581 ICD Code: I10 - ESSENTIAL (PRIMARY) HYPERTENSION Status: Acute Qualifiers: Hypertension type: essential hypertension Qualified Code(s): I10 - Essential (primary) hypertension (6) Hypomagnesemia SNOMED Code(s): 040205064 ICD Code: E83.42 - HYPOMAGNESEMIA Status: Acute - Patient Instructions Diet: Usual Diet as Tolerated Activity: As Tolerated Notify Provider of: Fever, Increased Pain, Nausea and/or Vomiting - Discharge Plan Prescriptions/Med Rec: Potassium Chloride [Klor-Con 10] 40 meq PO BID 30 Days tab.er Vancomycin [Vancocin 125 MG/2.5 ML Soln] 125 mg PO QID 5 Days #20 cup Home Medications: Home Meds Aspirin [Low Dose Aspirin EC] 81 mg PO DAILY 07/26/13 [History] Cholestyramine/Sucrose [Cholestyramine] 4 gm PO DAILY 05/22/16 [History] Cyanocobalamin (Vitamin B-12) [Cyanocobalamin Injection] 1,000 mcg IM Q30D 05/22 [History] Finasteride 5 mg PO DAILY 05/22/16 [History] Benazepril HCl [Lotensin] 20 mg PO BID 03/07/17 [History] Cholecalciferol (Vitamin D3) [Vitamin D3] 5,000 unit PO DAILY 03/07/17 [History] Hydrochlorothiazide [Microzide] 12.5 mg PO BID 03/07/17 [History] Magnesium Oxide [Magnesium] 500 mg PO DAILY 03/07/17 [History] Metoprolol Succinate [Toprol Xl] 50 mg PO DAILY 03/07/17 [History] Potassium Chloride [Klor-Con 10] 40 meq PO BID 30 Days tab.er 10/31/17 [Rx] Vancomycin [Vancocin 125 MG/2.5 ML Soln] 125 mg PO QID 5 Days #20 cup 10/31/17 [ Rx] Forms: ED Department Discharge Referrals: Jonny Valladares MD [Primary Care Provider] - - Discharge Summary/Plan Comment DC Time >30 min.: No - General Info Date of Service: 10/31/17 Admission Dx/Problem (Free Text: C Diff Subjective Update: Patient reports he is feeling much better. Stooling has decreased. He denies any abdominal pain. Did have an episode this morning where a pill got stuck in his throat. He was given Glucagon, which improved symptoms. - Review of Systems General: Denies: Fever, Weakness, Fatigue, Chills HEENT: Reports: No Symptoms Pulmonary: Reports: No Symptoms. Denies: Shortness of Breath, Cough, Sputum, Wheezing Cardiovascular: Reports: No Symptoms. Denies: Chest Pain, Dyspnea on Exertion, Edema, Lightheadedness Gastrointestinal: Reports: Diarrhea, Difficulty Swallowing. Denies: Abdominal Pain, Constipation, Decreased Appetite, Hematochezia, Melena, Nausea, Vomiting Genitourinary: Reports: No Symptoms. Denies: Dysuria, Frequency, Urgency Musculoskeletal: Reports: No Symptoms Skin: Reports: No Symptoms Neurological: Reports: No Symptoms Psychiatric: Reports: No Symptoms - Patient Data Vitals - Most Recent: Last Vital Signs Temp 97.6 F 10/31/17 07:56 Pulse 61 10/31/17 08:03 Resp 20 10/31/17 07:56 BP 139/66 10/31/17 08:03 Pulse Ox 97 10/31/17 07:56 Weight - Most Recent: 159 lb 1.6 oz I&O - Last 24 hours: Intake & Output 10/30/17 10/31/17 10/31/17 22:59 06:59 14:59 Intake Total 800 1150 Output Total 300 1950 300 Balance 500 -800 -300 Lab Results - Last 24 hrs: Laboratory Results - last 24 hr 10/31/17 10/31/17 10/31/17 Range/Units 07:31 07:31 07:31 WBC (5.0-10.0) 10^3/uL RBC (4.50-6.00) 10^6/uL Hgb (14.0-18.0) g/dL Hct (40.0-54.0) % MCV (82.0-94.0) fL MCH (27.0-32.0) pg MCHC (33.0-38.0) g/dL RDW Coeff of Yesica (11.0-15.0) % Plt Count (150-400) 10^3/uL Neut % (Auto) (35-85) % Lymph % (Auto) (10-55) % [place] % (Auto) (0-16) % Eos % (Auto) (0-5) % Baso % (Auto) (0-3) % Neut # (Auto) (1.80-7.00) 10^3/uL Lymph # (Auto) (1.00-4.80) 10^3/uL [place] # (Auto) (0.00-0.80) 10^3/uL Eos # (Auto) (0.00-0.45) 10^3/uL Baso # (Auto) 10^3/uL PT 50.9 H (9.7-12.3) SEC INR 5.56 H* (0.92-1.18) Sodium 136 (136-145) mEq/L Potassium 3.3 L (3.5-5.0) mEq/L Chloride 102 (98-106) mEq/L Carbon Dioxide 24 (21-32) mmol/L BUN 5 L (7-18) mg/dL Creatinine 1.0 (0.7-1.3) mg/dL Est Cr Clr Drug Dosing 51.06 mL/min Estimated GFR (MDRD) > 60 (>=60) mL/min Glucose 102 H (75-99) mg/dL Calcium 7.8 L (8.4-10.1) mg/dL C-Reactive Protein 0.8 (0.2-0.8) mg/dL 10/31/17 Range/Units 07:31 WBC 7.7 (5.0-10.0) 10^3/uL RBC 3.02 L (4.50-6.00) 10^6/uL Hgb 9.2 L (14.0-18.0) g/dL Hct 27.6 L (40.0-54.0) % MCV 91.4 (82.0-94.0) fL MCH 30.5 (27.0-32.0) pg MCHC 33.3 (33.0-38.0) g/dL RDW Coeff of Yesica 22.4 H (11.0-15.0) % Plt Count 293 (150-400) 10^3/uL Neut % (Auto) 68.4 (35-85) % Lymph % (Auto) 15.2 (10-55) % [place] % (Auto) 9.9 (0-16) % Eos % (Auto) 6.0 H (0-5) % Baso % (Auto) 0.5 (0-3) % Neut # (Auto) 5.27 (1.80-7.00) 10^3/uL Lymph # (Auto) 1.17 (1.00-4.80) 10^3/uL [place] # (Auto) 0.76 (0.00-0.80) 10^3/uL Eos # (Auto) 0.46 H (0.00-0.45) 10^3/uL Baso # (Auto) 0.04 10^3/uL PT (9.7-12.3) SEC INR (0.92-1.18) Sodium (136-145) mEq/L Potassium (3.5-5.0) mEq/L Chloride (98-106) mEq/L Carbon Dioxide (21-32) mmol/L BUN (7-18) mg/dL Creatinine (0.7-1.3) mg/dL Est Cr Clr Drug Dosing mL/min Estimated GFR (MDRD) (>=60) mL/min Glucose (75-99) mg/dL Calcium (8.4-10.1) mg/dL C-Reactive Protein (0.2-0.8) mg/dL Med Orders - Current: Current Medications Acetaminophen (Tylenol) 650 mg PO Q4H PRN PRN Reason: Pain (Mild 1-3)/fever Aspirin (Halfprin) 81 mg PO DAILY [facility] Last Admin: 10/31/17 08:02 Dose: 81 mg Cholecalciferol (Vitamin D3) 5,000 units PO DAILY [facility] Last Admin: 10/31/17 08:02 Dose: 5,000 units Finasteride (Proscar) 5 mg PO DAILY [facility] Last Admin: 10/31/17 08:04 Dose: 5 mg Hydrochlorothiazide (Hydrochlorothiazide) 12.5 mg PO BID [facility] Last Admin: 10/31/17 08:04 Dose: 12.5 mg Dextrose/Sodium Chloride (Dextrose 5%-1/2 Ns) 1,000 mls @ 100 mls/hr IV ASDIRECTED [facility] Last Admin: 10/31/17 01:05 Dose: 100 mls/hr Lisinopril (Prinivil) 20 mg PO BID [facility] Last Admin: 10/31/17 08:03 Dose: 20 mg Magnesium Oxide (Magnesium Oxide) 500 mg PO DAILY [facility] Last Admin: 10/31/17 08:04 Dose: 500 mg Metoprolol Succinate (Toprol Xl) 50 mg PO DAILY [facility] Last Admin: 10/31/17 08:03 Dose: 50 mg Non-Form (Cholestyramine 4 Gm) 0 gm PO BID [facility] Last Admin: 10/31/17 08:08 Dose: 4 gm Ondansetron HCl (Zofran) 4 mg IV Q6H PRN PRN Reason: Nausea/Vomiting Pantoprazole Sodium (Protonix Iv) 40 mg IVPUSH Q24H [facility] Last Admin: 10/31/17 09:44 Dose: 40 mg Potassium Chloride (Klor-Con 10) 40 meq PO BID [facility] Temazepam (Restoril) 15 mg PO BEDTIME PRN PRN Reason: Sleep Vancomycin HCl (Vancocin 125 Mg/2.5 Ml Soln) 125 mg PO QID [facility] Last Admin: 10/31/17 08:05 Dose: 125 mg Discontinued Medications Enoxaparin Sodium (Lovenox) 40 mg SUBCUT Q24H [facility] Last Admin: 10/27/17 15:11 Dose: 40 mg Enoxaparin Sodium (Lovenox) 60 mg SUBCUT BID [facility] Last Admin: 10/30/17 08:03 Dose: Not Given Glucagon (Glucagen) 1 mg IVPUSH ONETIME ONE Stop: 10/31/17 09:32 Last Admin: 10/31/17 09:50 Dose: 1 mg Lactated Ringer's (Ringers, Lactated) 1,000 mls @ 500 mls/hr IV .BOLUS ONE Stop: 10/27/17 13:44 Last Admin: 10/27/17 12:07 Dose: 500 mls/hr Lactated Ringer's (Ringers, Lactated) 1,000 mls @ 75 mls/hr IV ASDIRECTED [facility] Last Admin: 10/27/17 20:29 Dose: 75 mls/hr Potassium Chloride 40 meq/ (Premix) 100 mls @ 25 mls/hr IV ONETIME ONE Stop: 10/27/17 18:35 Last Admin: 10/27/17 15:11 Dose: 25 mls/hr Dextrose/Sodium Chloride (Dextrose 5%-1/2 Ns) 1,000 mls @ 125 mls/hr IV ASDIRECTED [facility] Stop: 10/29/17 17:44 Last Admin: 10/28/17 10:02 Dose: 125 mls/hr Magnesium Sulfate/Dextrose 2 (gm/ Premix) 200 mls @ 100 mls/hr IV ONETIME ONE Stop: 10/28/17 11:43 Last Admin: 10/28/17 10:12 Dose: 100 mls/hr Potassium Chloride 40 meq/ (Premix) 100 mls @ 12.5 mls/hr IV ONETIME ONE Stop: 10/28/17 17:59 Last Admin: 10/28/17 10:03 Dose: 12.5 mls/hr Potassium Chloride 80 meq/ (Premix) 200 mls @ 12.5 mls/hr IV ONETIME ONE Stop: 10/29/17 03:16 Last Admin: 10/28/17 11:54 Dose: Not Given Dextrose/Sodium Chloride (Dextrose 5%-1/2 Ns) 2,000 mls @ 125 mls/hr IV ASDIRECTED [facility] Stop: 10/30/17 01:44 Last Admin: 10/28/17 11:54 Dose: Not Given Dextrose/Sodium Chloride (Dextrose 5%-1/2 Ns) 1,000 mls @ 125 mls/hr IV ASDIRECTED [facility] Stop: 10/28/17 19:17 Last Admin: 10/28/17 11:37 Dose: Not Given Potassium Chloride 40 meq/ (Premix) 100 mls @ 12.5 mls/hr IV ONETIME ONE Stop: 10/28/17 19:16 Last Admin: 10/28/17 11:39 Dose: Not Given Dextrose/Sodium Chloride (Dextrose 5%-1/2 Ns) 1,000 mls @ 125 mls/hr IV ONETIME ONE Stop: 10/28/17 19:29 Last Admin: 10/28/17 11:56 Dose: Not Given Potassium Chloride 40 meq/ (Premix) 100 mls @ 12.5 mls/hr IV ONETIME ONE Stop: 10/28/17 19:44 Potassium Chloride 40 meq/ (Premix) 100 mls @ 12.5 mls/hr IV ONETIME ONE Stop: 10/29/17 01:59 Last Admin: 10/28/17 17:32 Dose: 12.5 mls/hr Dextrose/Sodium Chloride (Dextrose 5%-1/2 Ns) 1,000 mls @ 125 mls/hr IV ONETIME ONE Stop: 10/29/17 01:59 Last Admin: 10/28/17 17:30 Dose: 125 mls/hr Potassium Chloride 40 meq/ (Premix) 100 mls @ 10 mls/hr IV STAT STA Stop: 10/29/17 18:22 Last Admin: 10/29/17 08:48 Dose: 10 mls/hr Dextrose/Sodium Chloride (Dextrose 5%-1/2 Ns) 1,000 mls @ 100 mls/hr IV ONETIME ONE Stop: 10/30/17 03:59 Potassium Chloride 40 meq/ (Premix) 100 mls @ 10 mls/hr IV ONETIME ONE Stop: 10/30/17 03:59 Last Admin: 10/29/17 18:11 Dose: 10 mls/hr Magnesium Sulfate/Dextrose 2 (gm/ Premix) 200 mls @ 100 mls/hr IV ONETIME ONE Stop: 10/29/17 11:43 Last Admin: 10/29/17 09:53 Dose: 100 mls/hr Iopamidol (Isovue-300 (61%)) 100 ml IVPUSH ONETIME ONE Stop: 10/27/17 14:09 Last Admin: 10/27/17 16:21 Dose: 100 ml Potassium Chloride (Klor-Con 10) 40 meq PO DAILY [facility] Last Admin: 10/31/17 08:04 Dose: 40 meq Warfarin Sodium 2 mg/ Warfarin (Sodium 5 mg) 7 mg PO DAILY [facility] Last Admin: 10/29/17 07:57 Dose: 7 mg - Exam Quality Assessment: Reports: DVT Prophylaxis General: Reports: Alert, Oriented, No Acute Distress Neck: Reports: Supple Lungs: Reports: Clear to Auscultation, Normal Respiratory Effort Cardiovascular: Reports: Regular Rate, Regular Rhythm GI/Abdominal Exam: Normal Bowel Sounds, Soft, Non-Tender, No Organomegaly, No Distention, No Abnormal Bruit, No Mass, Pelvis Stable Back Exam: Reports: Normal Inspection, Full Range of Motion Extremities: Normal Inspection, Normal Range of Motion, Non-Tender, No Pedal Edema, Normal Capillary Refill Skin: Reports: Warm, Dry, Intact Neurological: Reports: No New Focal Deficit Psy/Mental Status: Reports: Alert, Normal Affect, Normal Mood
[2017-10-31 11:57] VITALS: BP 129/63
[2017-10-31] MEDS ORDERED: Potassium Chloride 10 MEQ Tab.ER PO SCH (20:00)
== END 2017-10-31 14:30 | disposition home or self-care (01) | DRG 371 ==
LOC: CC.ED 11:03 → CC.MS 12:52 → UNDOADMIN 12:52 → CC.MS 14:20
PROVIDERS: ADMIT Nurse Practitioner Family; ATTEND General Practice
DX: A04.72 Enterocolitis due to Clostridium difficile, not specified as recurrent (principal); I26.99 Other pulmonary embolism without acute cor pulmonale; C18.9 Malignant neoplasm of colon, unspecified; E87.6 Hypokalemia; K52.9 Noninfective gastroenteritis and colitis, unspecified; H54.7 Unspecified visual loss; H91.90 Unspecified hearing loss, unspecified ear; E78.00 Pure hypercholesterolemia, unspecified; I10 Essential (primary) hypertension; N40.0 Benign prostatic hyperplasia without lower urinary tract symptoms; M19.90 Unspecified osteoarthritis, unspecified site; G89.29 Other chronic pain; M54.9 Dorsalgia, unspecified; R53.1 Weakness; E83.42 Hypomagnesemia; Z90.49 Acquired absence of other specified parts of digestive tract; Z88.0 Allergy status to penicillin; Z88.2 Allergy status to sulfonamides; Z88.8 Allergy status to other drugs, medicaments and biological substances; R53.83 Other fatigue; R11.2 Nausea with vomiting, unspecified; Z91.041 Radiographic dye allergy status; R10.9 Unspecified abdominal pain; Z79.82 Long term (current) use of aspirin; Z79.899 Other long term (current) drug therapy
CPT/HCPCS: 36415; 80053; 85025; 86140; 87045; 87046 ×3; 87493; 89055; 96360; 99284; J7120; 71260; 74177; 80048; 82962; 83735; 85610; A9270-GY; C9113; J1610; J1650; J3475; J3480; J7042; Q9967

== ENCOUNTER 2018-06-28 13:00 | Inpatient (IN) | payer MEDICARE, BC ==
[2018-06-28] MEDS ORDERED: Metoprolol Tartrate 5 MG/5 ML SDV ONE (13:25)
[2018-06-28 13:28] LABS: CHLORIDE,CL 98 mEq/L (98-106); SODIUM,NA 137 mEq/L (136-145)
[2018-06-28] MEDS ORDERED: Metoprolol Tartrate 5 MG/5 ML SDV IVPUSH ONE (14:00)
[2018-06-28] MEDS ORDERED: amLODIPine 2.5 MG Tab PO ONE (15:19)
[2018-06-28] MEDS: Enoxaparin 40 MG/0.4 ML Syringe SUBCUT SCH (16:15)
[2018-06-28] MEDS: **PTOM** Potassium Chloride 10 MEQ Tab.ER PO SCH (18:02)
[2018-06-28] MEDS: BENAZEPRIL HCL 20 MG PO SCH (19:41)
[2018-06-28] MEDS: HYDROCHLOROTHIAZIDE 12.5 MG PO SCH (19:42)
[2018-06-29] MEDS ORDERED: Ondansetron 4 MG/2 ML SDV IVPUSH PRN (00:59)
[2018-06-29] MEDS ORDERED: Lactated Ringers 1,000 ML IV SCH (01:15)
--- NOTE | 2018-06-29 07:38 | EDM.PDOC ---
ED HPI GENERAL MEDICAL PROBLEM - General Chief Complaint: Neuro Symptoms/Deficits Stated Complaint: stroke? Time Seen by Provider: 06/28/18 13:06 Source of Information: Reports: Patient, Family () History Limitations: Reports: No Limitations - History of Present Illness INITIAL COMMENTS - FREE TEXT/NARRATIVE: Harshal is an 88 yr old male who presents tot the ED via [facility] with reports of confusion, slurred speech, and left sided weakness. EMS upon arrival felt he had some weakness in his left arm and noticed he appeared to be confused. He was alert but wasn't really sure where he was at. Their initial blood pressure was 204/123. His states she went into the kitchen for a bit and when she came back he said he didn't feel right and started not to answer her. Onset of symptoms was around 12:30. Patient has no previous history of stroke. states she called 911 with concerns of possible stroke. Upon arrival to ED Harshal was alert and orientated to person and time, unsure of where he is. He initially kept saying "I just don't know where I am" Upon my arrival it appeared he had very slight left upper extremity weakness that appeared to completely subside within roughly 20 minutes. He was able to answer all questions appropriately besides where he is. I am familiar with Harshal and initially he was unable to recognize myself. No slurred speech noted. Stroke protocol was initiated upon arrival. CT head appeared negative for any acute findings. Labs were stable. EKG stable. Blood pressure continued to be elevated and patient was given 5mg of Metoprolol Tartrate via IV. Patient was able to stand at edge of bed to void and did not appear to have an unsteady gait. stated he appears to be his normal self now as well. Harshal was able to determine date and time and knew he had an eye doctors appointment tomorrow. Prior to admission he was able to determine where he was as well. Posterior Neck Pain Score (Numeric/FACES): 5 - Related Data Allergies Allergy/AdvReac Type Severity Reaction Status Date / Time Iodinated Contrast- Oral and Allergy Vomiting Verified 06/28/18 13:51 IV Dye Penicillins Allergy Cannot Verified 06/28/18 13:51 Remember Sulfa (Sulfonamide Allergy Cannot Verified 06/28/18 13:51 Antibiotics) Remember tramadol Allergy Fainting Verified 06/28/18 13:51 Home Meds: Home Meds Aspirin [Low Dose Aspirin EC] 81 mg PO DAILY 07/26/13 [History] Cholestyramine/Sucrose [Cholestyramine] 4 gm PO DAILY 05/22/16 [History] Cyanocobalamin (Vitamin B-12) [Cyanocobalamin Injection] 1,000 mcg IM Q30D 05/22 [History] Finasteride 5 mg PO DAILY 05/22/16 [History] Benazepril HCl [Lotensin] 20 mg PO BID 03/07/17 [History] Cholecalciferol (Vitamin D3) [Vitamin D3] 5,000 unit PO DAILY 03/07/17 [History] Hydrochlorothiazide [Microzide] 12.5 mg PO BID 03/07/17 [History] Magnesium Oxide [Magnesium] 500 mg PO BEDTIME 03/07/17 [History] Metoprolol Succinate [Toprol Xl] 50 mg PO DAILY 03/07/17 [History] Potassium Chloride [Klor-Con 10] 40 meq PO BID 30 Days tab.er 10/31/17 [Rx] Loperamide HCl [Anti-Diarrheal] 1 tab PO TIDAC 06/29/18 [History] Past Medical History HEENT History: Reports: Hard of Hearing, Impaired Vision Cardiovascular History: Reports: Arrhythmia, Blood Clots/VTE/DVT, High Cholesterol, Hypertension, Other (See Below) Respiratory History: Reports: None Gastrointestinal History: Reports: Other (See Below) Other Gastrointestinal History: Crohns, hernia Genitourinary History: Reports: BPH Musculoskeletal History: Reports: Arthritis, Back Pain, Chronic, Fracture Neurological History: Reports: None Oncologic (Cancer) History: Reports: Colon - Past Surgical History HEENT Surgical History: Reports: Cataract Surgery Cardiovascular Surgical History: Reports: None GI Surgical History: Reports: Appendectomy, Cholecystectomy, Colon, Colonoscopy , Hernia, Abdominal, Hernia, Inguinal, Other (See Below) Other GI Surgeries/Procedures: removed about 16 inches of colon d/t colon cancer Male Surgical History: Reports: None Neurological Surgical History: Reports: Other (See Below) Other Neurological Surgeries/Procedures: "not sure what I had done but I had a surgery on my lower back" Musculoskeletal Surgical History: Reports: None Oncologic Surgical History: Reports: None Social & Family History - Family History Family Medical History: Noncontributory - Tobacco Use Smoking Status *Q: Former Smoker Used Tobacco, but Quit: Yes Month/Year Tobacco Last Used: 45yrs - Caffeine Use Caffeine Use: Reports: Coffee - Recreational Drug Use Recreational Drug Use: Yes - Living Situation & Occupation Living situation: Reports: , with Spouse Occupation: Retired ED ROS GENERAL - Review of Systems Review Of Systems: See Below Constitutional: Reports: Weakness. Denies: Fever HEENT: Reports: Hearing Loss. Denies: Vision Change Respiratory: Reports: No Symptoms. Denies: Shortness of Breath Cardiovascular: Reports: Blood Pressure Problem. Denies: Chest Pain, Palpitations GI/Abdominal: Reports: No Symptoms : Reports: No Symptoms Skin: Reports: No Symptoms Neurological: Reports: Confusion, Weakness, Change in Speech. Denies: Headache , Seizure, Difficulty Walking ED EXAM, NEURO - Physical Exam Exam: See Below Exam Limited By: No Limitations General Appearance: Alert, No Apparent Distress Eye Exam: Bilateral Eye: EOMI, Normal Inspection, PERRL Ears: Normal External Exam, Normal TMs, Hearing Loss (bilateral hearing aids ) Nose: Normal Inspection, Normal Mucosa, No Blood Throat/Mouth: Normal Inspection, Normal Gums, Normal Oropharynx, Normal Voice, No Airway Compromise Head Exam: Atraumatic, Normocephalic Neck: Normal Inspection, Supple Respiratory/Chest: No Respiratory Distress, Lungs Clear, No Accessory Muscle Use Cardiovascular: Regular Rate, Rhythm, No Edema GI/Abdominal: Normal Bowel Sounds, Soft, Non-Tender, No Organomegaly Neurological: Alert, CN II-XII Intact, Normal Gait, Other (confusion noted upon arrival, see HPI). No: Abnormal Gait, Abnormal Finger to Nose, Abn 2 Pt Discrimination Psychiatric: Normal Mood, Flat Affect Skin Exam: Warm, Dry, Intact EKG INTERPRETATION EKG Date: 06/28/18 Rhythm: NSR Comparison: NA - No Prior EKG Course - Vital Signs Last Recorded V/S: Last Vital Signs Temp 97.3 F 06/29/18 04:00 Pulse 83 06/29/18 04:00 Resp 20 06/29/18 04:00 BP 141/51 H 06/29/18 04:00 Pulse Ox 95 06/29/18 04:00 - Orders/Labs/Meds Orders: Medication Orders Aspirin (Halfprin) 81 mg PO DAILY [facility] Last Admin: 06/29/18 07:57 Dose: 81 mg Enoxaparin Sodium (Lovenox) 40 mg SUBCUT Q24H [facility] Last Admin: 06/28/18 16:15 Dose: 40 mg Finasteride (Proscar) 5 mg PO DAILY [facility] Last Admin: 06/29/18 07:56 Dose: 5 mg Hydrochlorothiazide (Hydrochlorothiazide) 12.5 mg PO BID [facility] Last Admin: 06/28/18 19:42 Dose: 12.5 mg Lactated Ringer's (Ringers, Lactated) 1,000 mls @ 75 mls/hr IV ASDIRECTED [facility] Last Admin: 06/29/18 01:30 Dose: 75 mls/hr Magnesium Oxide (Magnesium Oxide) 500 mg PO BEDTIME [facility] Last Admin: 06/28/18 19:44 Dose: 500 mg Ptom Benazepril (Hcl 20 Mg) 20 mg PO BID [facility] Last Admin: 06/28/18 19:41 Dose: 20 mg Non-Formulary Medication (Cholestyramine/Sucrose [Cholestyramine]) 4 gm PO DAILY [facility] Ptom Metoprolol Succinate [Toprol Xl ] 50 Mg 50 mg PO DAILY [facility] Last Admin: 06/29/18 07:56 Dose: 50 mg Ondansetron HCl (Zofran) 4 mg IVPUSH Q6H PRN PRN Reason: Nausea Last Admin: 06/29/18 01:32 Dose: 4 mg Potassium Chloride (Klor-Con 10) 20 meq PO BIDMEALS [facility] Last Admin: 06/28/18 18:02 Dose: 20 meq Labs: Laboratory Tests 06/28/18 06/28/18 06/28/18 Range/Units 13:00 13:11 13:11 WBC 13.0 H (5.0-10.0) 10^3/uL RBC 5.10 (4.50-6.00) 10^6/uL Hgb 14.9 (14.0-18.0) g/dL Hct 44.1 (40.0-54.0) % MCV 86.5 (82.0-94.0) fL MCH 29.2 (27.0-32.0) pg MCHC 33.8 (33.0-38.0) g/dL RDW Coeff of Yesica 15.1 H (11.0-15.0) % Plt Count 313 (150-400) 10^3/uL Neut % (Auto) 72.9 (35-85) % Lymph % (Auto) 16.1 (10-55) % [place] % (Auto) 8.7 (0-16) % Eos % (Auto) 2.1 (0-5) % Baso % (Auto) 0.2 (0-3) % Neut # (Auto) 9.49 H (1.80-7.00) 10^3/uL Lymph # (Auto) 2.10 (1.00-4.80) 10^3/uL [place] # (Auto) 1.13 H (0.00-0.80) 10^3/uL Eos # (Auto) 0.27 (0.00-0.45) 10^3/uL Baso # (Auto) 0.02 10^3/uL PT (9.7-12.3) SEC INR (0.92-1.18) APTT (23.2-32.3) SEC Sodium 137 (136-145) mEq/L Potassium 3.3 L D (3.5-5.0) mEq/L Chloride 98 (98-106) mEq/L Carbon Dioxide 29 (21-32) mmol/L BUN 17 (7-18) mg/dL Creatinine 1.0 (0.7-1.3) mg/dL Est Cr Clr Drug Dosing TNP Estimated GFR (MDRD) > 60 (>=60) mL/min Glucose 112 H (75-99) mg/dL Calcium 9.7 (8.4-10.1) mg/dL Magnesium 1.8 (1.8-2.4) mg/dL Creatine Kinase 42 (35-232) U/L Urine Color (YELLOW) Urine Appearance (CLEAR) Urine pH (4.5-8.0) Ur Specific [place] (1.003-1.020) Urine Protein (NEGATIVE) mg/dL Urine Glucose (UA) (NEGATIVE) mg/dL Urine Ketones (NEGATIVE) mg/dL Urine Occult Blood (NEGATIVE) Urine Nitrite (NEGATIVE) Urine Bilirubin (NEGATIVE) Urine Urobilinogen (0.2-1.0) EU/dL Ur Leukocyte Esterase (NEGATIVE) Urine RBC (0-5) /HPF Urine WBC (0-5) /HPF Ur Epithelial Cells (NOT SEEN) /HPF 06/28/18 06/28/18 Range/Units 13:11 13:57 WBC (5.0-10.0) 10^3/uL RBC (4.50-6.00) 10^6/uL Hgb (14.0-18.0) g/dL Hct (40.0-54.0) % MCV (82.0-94.0) fL MCH (27.0-32.0) pg MCHC (33.0-38.0) g/dL RDW Coeff of Yesica (11.0-15.0) % Plt Count (150-400) 10^3/uL Neut % (Auto) (35-85) % Lymph % (Auto) (10-55) % [place] % (Auto) (0-16) % Eos % (Auto) (0-5) % Baso % (Auto) (0-3) % Neut # (Auto) (1.80-7.00) 10^3/uL Lymph # (Auto) (1.00-4.80) 10^3/uL [place] # (Auto) (0.00-0.80) 10^3/uL Eos # (Auto) (0.00-0.45) 10^3/uL Baso # (Auto) 10^3/uL PT 10.0 (9.7-12.3) SEC INR 0.96 (0.92-1.18) APTT 24.8 (23.2-32.3) SEC Sodium (136-145) mEq/L Potassium (3.5-5.0) mEq/L Chloride (98-106) mEq/L Carbon Dioxide (21-32) mmol/L BUN (7-18) mg/dL Creatinine (0.7-1.3) mg/dL Est Cr Clr Drug Dosing Estimated GFR (MDRD) (>=60) mL/min Glucose (75-99) mg/dL Calcium (8.4-10.1) mg/dL Magnesium (1.8-2.4) mg/dL Creatine Kinase (35-232) U/L Urine Color Light yellow (YELLOW) Urine Appearance Clear (CLEAR) Urine pH 7.0 (4.5-8.0) Ur Specific [place] 1.015 (1.003-1.020) Urine Protein 100 H (NEGATIVE) mg/dL Urine Glucose (UA) Negative (NEGATIVE) mg/dL Urine Ketones Negative (NEGATIVE) mg/dL Urine Occult Blood Negative (NEGATIVE) Urine Nitrite Negative (NEGATIVE) Urine Bilirubin Negative (NEGATIVE) Urine Urobilinogen 0.2 (0.2-1.0) EU/dL Ur Leukocyte Esterase Negative (NEGATIVE) Urine RBC Not seen (0-5) /HPF Urine WBC Not seen (0-5) /HPF Ur Epithelial Cells Occasional H (NOT SEEN) /HPF Meds: Medications Generic Name Dose Route Start Last Admin Trade Name Freq PRN Reason Stop Dose Admin Aspirin 81 mg 06/29/18 08:00 06/29/18 07:57 Halfprin PO 81 mg DAILY [facility] Administration Enoxaparin Sodium 40 mg 06/28/18 16:00 06/28/18 16:15 Lovenox SUBCUT 40 mg Q24H [facility] Administration Finasteride 5 mg 06/29/18 08:00 06/29/18 07:56 Proscar PO 5 mg DAILY [facility] Administration Hydrochlorothiazide 12.5 mg 06/28/18 20:00 06/29/18 07:57 Hydrochlorothiazide PO 12.5 mg BID [facility] Administration Lactated Ringer's 1,000 mls @ 75 mls/hr 06/29/18 01:15 06/29/18 01:30 Ringers, Lactated IV 75 mls/hr ASDIRECTED [facility] Administration Magnesium Oxide 500 mg 06/28/18 20:00 06/28/18 19:44 Magnesium Oxide PO 500 mg BEDTIME [facility] Administration Ptom Benazepril 20 mg 06/28/18 20:00 06/29/18 07:55 Hcl 20 Mg PO 20 mg BID [facility] Administration Non-Formulary Medication 4 gm 06/29/18 08:00 Cholestyramine/Sucrose [Cholestyramine] PO DAILY [facility] Ptom Metoprolol 50 mg 06/29/18 08:00 06/29/18 07:56 Succinate [Toprol Xl PO 50 mg ] 50 Mg DAILY [facility] Administration Ondansetron HCl 4 mg 06/29/18 00:59 06/29/18 01:32 Zofran IVPUSH 4 mg Q6H PRN Administration Nausea Potassium Chloride 20 meq 06/28/18 17:30 06/29/18 07:55 Klor-Con 10 PO 20 meq BIDMEALS [facility] Administration Discontinued Medications Generic Name Dose Route Start Last Admin Trade Name Radha PRN Reason Stop Dose Admin Amlodipine Besylate 5 mg 06/28/18 15:19 06/28/18 16:14 Norvasc PO 06/28/18 15:20 5 mg ONETIME ONE Administration Metoprolol Tartrate Confirm 06/28/18 13:25 06/28/18 14:01 Lopressor Administered 06/28/18 13:26 Not Given Dose 5 mg .ROUTE .STK-MED ONE Metoprolol Tartrate 5 mg 06/28/18 14:00 06/28/18 13:32 Lopressor IVPUSH 06/28/18 14:01 5 mg ONETIME ONE Administration Departure - Departure Time of Disposition: 14:30 Disposition: Refer to Observation Clinical Impression: TIA (transient ischemic attack), Hypertension - Discharge Information - Problem List & Annotations (1) TIA (transient ischemic attack) SNOMED Code(s): 790017882 Code(s): G45.9 - TRANSIENT CEREBRAL ISCHEMIC ATTACK, UNSPECIFIED Status: Acute Current Visit: Yes (2) Hypertension SNOMED Code(s): 66843067 Code(s): I10 - ESSENTIAL (PRIMARY) HYPERTENSION Status: Acute Current Visit: No Qualifiers: Hypertension type: unspecified Qualified Code(s): I10 - Essential (primary ) hypertension - Assessment/Plan Admission H&P: Please use this note as an admission H&P Plan: Residual symptoms resolved while in ED. Discussed findings with Harshal, and his son today. Discussed admission to hospital for close monitoring. Consulted with Dr. Hansen in regards to Harshal's condition and will admit under observation per his agreement. Will place on telemetry and closely monitor blood pressure as well. Dr. Hansen recommended 5mg of Norvasc on admission and to closely monitor blood pressure. Neurochecks will be done every 2 hours while awake and every 4 hours while sleeping.
[2018-06-29 07:43] LABS: CHLORIDE,CL 101 mEq/L (98-106); SODIUM,NA 140 mEq/L (136-145)
[2018-06-29] MEDS: **PTOM** Potassium Chloride 10 MEQ Tab.ER PO SCH ×2 (07:55→17:16)
[2018-06-29] MEDS: BENAZEPRIL HCL 20 MG PO SCH ×2 (07:55→19:54)
[2018-06-29] MEDS: METOPROLOL SUCCINATE 50 MG PO SCH (07:56)
[2018-06-29] MEDS: **PTOM** Finasteride 5 MG Tab PO SCH (07:56)
[2018-06-29] MEDS: HYDROCHLOROTHIAZIDE 12.5 MG PO SCH ×2 (07:57→19:52)
[2018-06-29] MEDS: **PTOM** Aspirin 81 MG Tab.EC PO SCH (07:57)
[2018-06-29] MEDS ORDERED: Oxyquinoline/Emollient 0.3% Oint 1 OZ Canister TOP PRN (08:09)
--- NOTE | 2018-06-29 10:43 | PCM.PN ---
- General Info Date of Service: 06/29/18 Admission Dx/Problem (Free Text): TIA Functional Status: Reports: Pain Controlled, Tolerating Diet, Ambulating - Review of Systems General: Reports: Weakness. Denies: Fever HEENT: Reports: No Symptoms Pulmonary: Denies: Shortness of Breath, Cough Cardiovascular: Denies: Chest Pain, Edema, Lightheadedness Gastrointestinal: Denies: Abdominal Pain, Nausea, Vomiting Genitourinary: Reports: No Symptoms Musculoskeletal: Reports: No Symptoms Skin: Reports: No Symptoms Neurological: Reports: Syncope, Weakness - Patient Data Vitals - Most Recent: Last Vital Signs Temp 97.4 F 06/29/18 08:00 Pulse 87 06/29/18 08:00 Resp 18 06/29/18 08:00 BP 123/63 06/29/18 08:00 Pulse Ox 97 06/29/18 08:00 Weight - Most Recent: 172 lb 9.6 oz Lab Results Last 24 Hours: Laboratory Results - last 24 hr 06/28/18 06/28/18 06/28/18 Range/Units 13:00 13:11 13:11 WBC 13.0 H (5.0-10.0) 10^3/uL RBC 5.10 (4.50-6.00) 10^6/uL Hgb 14.9 (14.0-18.0) g/dL Hct 44.1 (40.0-54.0) % MCV 86.5 (82.0-94.0) fL MCH 29.2 (27.0-32.0) pg MCHC 33.8 (33.0-38.0) g/dL RDW Coeff of Yesica 15.1 H (11.0-15.0) % Plt Count 313 (150-400) 10^3/uL Neut % (Auto) 72.9 (35-85) % Lymph % (Auto) 16.1 (10-55) % [place] % (Auto) 8.7 (0-16) % Eos % (Auto) 2.1 (0-5) % Baso % (Auto) 0.2 (0-3) % Neut # (Auto) 9.49 H (1.80-7.00) 10^3/uL Lymph # (Auto) 2.10 (1.00-4.80) 10^3/uL [place] # (Auto) 1.13 H (0.00-0.80) 10^3/uL Eos # (Auto) 0.27 (0.00-0.45) 10^3/uL Baso # (Auto) 0.02 10^3/uL PT (9.7-12.3) SEC INR (0.92-1.18) APTT (23.2-32.3) SEC Sodium 137 (136-145) mEq/L Potassium 3.3 L D (3.5-5.0) mEq/L Chloride 98 (98-106) mEq/L Carbon Dioxide 29 (21-32) mmol/L BUN 17 (7-18) mg/dL Creatinine 1.0 (0.7-1.3) mg/dL Est Cr Clr Drug Dosing TNP Estimated GFR (MDRD) > 60 (>=60) mL/min Glucose 112 H (75-99) mg/dL Calcium 9.7 (8.4-10.1) mg/dL Magnesium 1.8 (1.8-2.4) mg/dL Creatine Kinase 42 (35-232) U/L Triglycerides (30-150) mg/dL Cholesterol (0-199) mg/dL LDL Cholesterol, Calc (0-99) mg/dL HDL Cholesterol (60-90) mg/dL Urine Color (YELLOW) Urine Appearance (CLEAR) Urine pH (4.5-8.0) Ur Specific [place] (1.003-1.020) Urine Protein (NEGATIVE) mg/dL Urine Glucose (UA) (NEGATIVE) mg/dL Urine Ketones (NEGATIVE) mg/dL Urine Occult Blood (NEGATIVE) Urine Nitrite (NEGATIVE) Urine Bilirubin (NEGATIVE) Urine Urobilinogen (0.2-1.0) EU/dL Ur Leukocyte Esterase (NEGATIVE) Urine RBC (0-5) /HPF Urine WBC (0-5) /HPF Ur Epithelial Cells (NOT SEEN) /HPF 06/28/18 06/28/18 06/29/18 Range/Units 13:11 13:57 06:45 WBC 12.8 H (5.0-10.0) 10^3/uL RBC 4.68 (4.50-6.00) 10^6/uL Hgb 13.6 L (14.0-18.0) g/dL Hct 41.3 (40.0-54.0) % MCV 88.2 (82.0-94.0) fL MCH 29.1 (27.0-32.0) pg MCHC 32.9 L (33.0-38.0) g/dL RDW Coeff of Yes[place] 15.1 H (11.0-15.0) % Plt Count 297 (150-400) 10^3/uL Neut % (Auto) 77.8 (35-85) % Lymph % (Auto) 12.9 (10-55) % [place] % (Auto) 8.1 (0-16) % Eos % (Auto) 1.0 (0-5) % Baso % (Auto) 0.2 (0-3) % Neut # (Auto) 9.98 H (1.80-7.00) 10^3/uL Lymph # (Auto) 1.65 (1.00-4.80) 10^3/uL [place] # (Auto) 1.04 H (0.00-0.80) 10^3/uL Eos # (Auto) 0.13 (0.00-0.45) 10^3/uL Baso # (Auto) 0.02 10^3/uL PT 10.0 (9.7-12.3) SEC INR 0.96 (0.92-1.18) APTT 24.8 (23.2-32.3) SEC Sodium (136-145) mEq/L Potassium (3.5-5.0) mEq/L Chloride (98-106) mEq/L Carbon Dioxide (21-32) mmol/L BUN (7-18) mg/dL Creatinine (0.7-1.3) mg/dL Est Cr Clr Drug Dosing Estimated GFR (MDRD) (>=60) mL/min Glucose (75-99) mg/dL Calcium (8.4-10.1) mg/dL Magnesium (1.8-2.4) mg/dL Creatine Kinase (35-232) U/L Triglycerides (30-150) mg/dL Cholesterol (0-199) mg/dL LDL Cholesterol, Calc (0-99) mg/dL HDL Cholesterol (60-90) mg/dL Urine Color Light yellow (YELLOW) Urine Appearance Clear (CLEAR) Urine pH 7.0 (4.5-8.0) Ur Specific [place] 1.015 (1.003-1.020) Urine Protein 100 H (NEGATIVE) mg/dL Urine Glucose (UA) Negative (NEGATIVE) mg/dL Urine Ketones Negative (NEGATIVE) mg/dL Urine Occult Blood Negative (NEGATIVE) Urine Nitrite Negative (NEGATIVE) Urine Bilirubin Negative (NEGATIVE) Urine Urobilinogen 0.2 (0.2-1.0) EU/dL Ur Leukocyte Esterase Negative (NEGATIVE) Urine RBC Not seen (0-5) /HPF Urine WBC Not seen (0-5) /HPF Ur Epithelial Cells Occasional H (NOT SEEN) /HPF 06/29/18 Range/Units 06:45 WBC (5.0-10.0) 10^3/uL RBC (4.50-6.00) 10^6/uL Hgb (14.0-18.0) g/dL Hct (40.0-54.0) % MCV (82.0-94.0) fL MCH (27.0-32.0) pg MCHC (33.0-38.0) g/dL RDW Coeff of [place] (11.0-15.0) % Plt Count (150-400) 10^3/uL Neut % (Auto) (35-85) % Lymph % (Auto) (10-55) % [place] % (Auto) (0-16) % Eos % (Auto) (0-5) % Baso % (Auto) (0-3) % Neut # (Auto) (1.80-7.00) 10^3/uL Lymph # (Auto) (1.00-4.80) 10^3/uL [place] # (Auto) (0.00-0.80) 10^3/uL Eos # (Auto) (0.00-0.45) 10^3/uL Baso # (Auto) 10^3/uL PT (9.7-12.3) SEC INR (0.92-1.18) APTT (23.2-32.3) SEC Sodium 140 (136-145) mEq/L Potassium 3.2 L (3.5-5.0) mEq/L Chloride 101 (98-106) mEq/L Carbon Dioxide 30 (21-32) mmol/L BUN 17 (7-18) mg/dL Creatinine 1.1 (0.7-1.3) mg/dL Est Cr Clr Drug Dosing 45.53 Estimated GFR (MDRD) > 60 (>=60) mL/min Glucose 118 H (75-99) mg/dL Calcium 9.0 (8.4-10.1) mg/dL Magnesium (1.8-2.4) mg/dL Creatine Kinase (35-232) U/L Triglycerides 228 H (30-150) mg/dL Cholesterol 141 (0-199) mg/dL LDL Cholesterol, Calc 50 (0-99) mg/dL HDL Cholesterol 45 L (60-90) mg/dL Urine Color (YELLOW) Urine Appearance (CLEAR) Urine pH (4.5-8.0) Ur Specific [place] (1.003-1.020) Urine Protein (NEGATIVE) mg/dL Urine Glucose (UA) (NEGATIVE) mg/dL Urine Ketones (NEGATIVE) mg/dL Urine Occult Blood (NEGATIVE) Urine Nitrite (NEGATIVE) Urine Bilirubin (NEGATIVE) Urine Urobilinogen (0.2-1.0) EU/dL Ur Leukocyte Esterase (NEGATIVE) Urine RBC (0-5) /HPF Urine WBC (0-5) /HPF Ur Epithelial Cells (NOT SEEN) /HPF [place] Results Last 24 Hours: Microbiology 06/29/18 01:00 Stool for WBCs - Final Stool / Feces NO WBC SEEN Med Orders - Current: Current Medications Aspirin (Halfprin) 81 mg PO DAILY [facility] Last Admin: 06/29/18 07:57 Dose: 81 mg Enoxaparin Sodium (Lovenox) 40 mg SUBCUT Q24H [facility] Last Admin: 06/28/18 16:15 Dose: 40 mg Finasteride (Proscar) 5 mg PO DAILY [facility] Last Admin: 06/29/18 07:56 Dose: 5 mg Hydrochlorothiazide (Hydrochlorothiazide) 12.5 mg PO BID [facility] Last Admin: 06/29/18 07:57 Dose: 12.5 mg Magnesium Oxide (Magnesium Oxide) 500 mg PO BEDTIME [facility] Last Admin: 06/28/18 19:44 Dose: 500 mg Ptom Benazepril (Hcl 20 Mg) 20 mg PO BID [facility] Last Admin: 06/29/18 07:55 Dose: 20 mg Non-Formulary Medication (Cholestyramine/Sucrose [Cholestyramine]) 4 gm PO DAILY [facility] Ptom Metoprolol Succinate [Toprol Xl ] 50 Mg 50 mg PO DAILY [facility] Last Admin: 06/29/18 07:56 Dose: 50 mg Ptom Loperamide Hcl [Anti-Diarrheal] 2 Mg Tab 1 tab PO TIDAC [facility] Ondansetron HCl (Zofran) 4 mg IVPUSH Q6H PRN PRN Reason: Nausea Last Admin: 06/29/18 01:32 Dose: 4 mg Oxyquinoline Sulfate (Bag [place] Oint) 1 oz TOP ASDIRECTED PRN PRN Reason: Rash Potassium Chloride (Klor-Con 10) 20 meq PO BIDMEALS [facility] Last Admin: 06/29/18 07:55 Dose: 20 meq Discontinued Medications Amlodipine Besylate (Norvasc) 5 mg PO ONETIME ONE Stop: 06/28/18 15:20 Last Admin: 06/28/18 16:14 Dose: 5 mg Lactated Ringer's (Ringers, Lactated) 1,000 mls @ 75 mls/hr IV ASDIRECTED [facility] Last Admin: 06/29/18 01:30 Dose: 75 mls/hr Metoprolol Tartrate (Lopressor) Confirm Administered Dose 5 mg .ROUTE .STK-MED ONE Stop: 06/28/18 13:26 Last Admin: 06/28/18 14:01 Dose: Not Given Metoprolol Tartrate (Lopressor) 5 mg IVPUSH ONETIME ONE Stop: 06/28/18 14:01 Last Admin: 06/28/18 13:32 Dose: 5 mg - Exam General: Alert, Oriented HEENT: Mucous Membr. Moist/Colony Neck: Supple Lungs: Clear to Auscultation, Normal Respiratory Effort Cardiovascular: Regular Rate, Regular Rhythm GI/Abdominal Exam: Normal Bowel Sounds, Soft, Non-Tender Extremities: Normal Inspection, Normal Range of Motion, No Pedal Edema Skin: Warm, Dry Neurological: No New Focal Deficit, Normal Gait, Normal Speech, Normal Tone, Strength Equal Bilateral, Cranial Nerves Intact Psy/Mental Status: Alert - Problem List & Annotations (1) Syncope SNOMED Code(s): 352156216 Code(s): R55 - SYNCOPE AND COLLAPSE Status: Acute Priority: High Current Visit: Yes Qualifiers: Syncope type: vasovagal syncope Qualified Code(s): R55 - Syncope and collapse (2) TIA (transient ischemic attack) SNOMED Code(s): 693372897 Code(s): G45.9 - TRANSIENT CEREBRAL ISCHEMIC ATTACK, UNSPECIFIED Status: Acute Priority: High Current Visit: Yes (3) Weakness SNOMED Code(s): 98536298 Code(s): R53.1 - WEAKNESS Status: Acute Priority: High Current Visit: Yes - Problem List Review Problem List Initiated/Reviewed/Updated: Yes - My Orders Last 24 Hours: My Active Orders 06/29/18 08:09 Oxyquinoline/Emollient [Bag [place] Oint] 1 oz TOP ASDIRECTED PRN 06/29/18 08:12 JANETT Hose [Antiembolic Hose] [OM.PC] Routine 06/29/18 09:17 Brain wo Cont [MR] Routine Carotid Comp [US] Routine Echo Comp wo Cont [US] Routine 06/29/18 11:30 Loperamide HCl [Anti-Diarrheal] 1 tab PO TIDAC 06/29/18 Lunch Lactose Diet [DIET] - Assessment Assessment:: TIA Syncope~ likely vasovagal Weakness - Plan Plan:: Patient is feeling good this am. Denies any weakness in his arm. Alert and oriented. Neuro checks have been clear since admission. Denies any shortness of breath or chest pain. Does have issues with diarrhea. Admits that is chronic in nature. Patient had 2 syncopal episodes during the night, likely vasovagal as occurred after having loose stool on the commode. Not lightheaded while being up this am. WBC stable at 12.8, potassium down slightly to 3.2. Blood pressure 141/87. Neuro exam is normal. Patient completed chemo pills in April for colon cancer. Denies any blood in stools. Had recent CT scan of his abdomen that was normal. Will proceed with MRI of the brain, carotid ultrasound and echocardiogram. Consider starting Plavix at some point. Possible discharge home tomorrow.
[2018-06-29] MEDS: LOPERAMIDE HCL 2 MG PO SCH ×2 (12:04→17:16)
[2018-06-29] MEDS: SUCROSE PO SCH ×2 (13:36→19:54)
[2018-06-29] MEDS: CHOLESTYRAMINE PO SCH ×2 (13:36→19:54)
[2018-06-29] MEDS: Enoxaparin 40 MG/0.4 ML Syringe SUBCUT SCH (16:25)
[2018-06-30 07:02] VITALS: BP 134/55
[2018-06-30] MEDS: HYDROCHLOROTHIAZIDE 12.5 MG PO SCH (07:38)
[2018-06-30] MEDS: LOPERAMIDE HCL 2 MG PO SCH (07:38)
[2018-06-30] MEDS: **PTOM** Potassium Chloride 10 MEQ Tab.ER PO SCH (07:39)
[2018-06-30] MEDS: SUCROSE PO SCH (07:39)
[2018-06-30] MEDS: CHOLESTYRAMINE PO SCH (07:39)
[2018-06-30] MEDS: **PTOM** Aspirin 81 MG Tab.EC PO SCH (07:39)
[2018-06-30] MEDS: **PTOM** Finasteride 5 MG Tab PO SCH (07:39)
[2018-06-30] MEDS: BENAZEPRIL HCL 20 MG PO SCH (07:39)
[2018-06-30] MEDS: METOPROLOL SUCCINATE 50 MG PO SCH (09:39)
--- NOTE | 2018-06-30 21:21 | PCM.DCSUM1 ---
Discharge Summary - Hospital Course Free Text/Narrative:: Patient presented to ER with complaints of left sided weakness. He had an episode of left arm weakness, slurred speech and seemed confused. Resolved completely while in ER. Stroke protocol was done, CT scan of the head was negative. WBC mildly elevated at 13. Electrolys normal. UA negative. Was admitted for neuro checks/cardiac monitoring. Diagnosis: Stroke: No Modified [place] Scale: No Symptoms at All Modified [place] Scale Score: 0 - Discharge Data Discharge Date: 06/30/18 Discharge Disposition: Home, Self-Care 01 Condition: Good - Discharge Diagnosis/Problem(s) (1) Syncope SNOMED Code(s): 872973321 ICD Code: R55 - SYNCOPE AND COLLAPSE Status: Acute Priority: High Qualifiers: Syncope type: vasovagal syncope Qualified Code(s): R55 - Syncope and collapse (2) TIA (transient ischemic attack) SNOMED Code(s): 053680082 ICD Code: G45.9 - TRANSIENT CEREBRAL ISCHEMIC ATTACK, UNSPECIFIED Status: Acute Priority: High (3) Weakness SNOMED Code(s): 30146296 ICD Code: R53.1 - WEAKNESS Status: Acute Priority: High - Patient Summary/Data Complications: none Hospital Course: Patient has not had any return of stroke like symptoms during stay. he does deal with chronic diarrhea and on admit day 1, did have 2 syncopal episodes after being up on the commode. Due to this, further work up was done with carotid ultrasound echocardiogram. No rhythm changes noted on telemetry. Labs have remained stable. Neuro checks all normal. Is up ambulating today without any weakness, lightheadedness or chest pain. Did discuss starting Plavix with patient, will have patient address with Dr. Leon as has been on Coumadin in the past and it was stopped due to being on chemo meds for colon cancer and will need further follow up for that as well. Discharge home today. Follow up with Dr. Leon. Will forward results of echo and carotid ultrasound once received. - Patient Instructions Diet: Usual Diet as Tolerated Activity: As Tolerated - Discharge Plan *PRESCRIPTION DRUG MONITORING PROGRAM REVIEWED*: No *COPY OF PRESCRIPTION DRUG MONITORING REPORT IN PATIENT JAZMYN: No Home Medications: Home Meds Aspirin [Low Dose Aspirin EC] 81 mg PO DAILY 07/26/13 [History] Cholestyramine/Sucrose [Cholestyramine] 4 gm PO DAILY 05/22/16 [History] Cyanocobalamin (Vitamin B-12) [Cyanocobalamin Injection] 1,000 mcg IM Q30D 05/22 [History] Finasteride 5 mg PO DAILY 05/22/16 [History] Benazepril HCl [Lotensin] 20 mg PO BID 03/07/17 [History] Cholecalciferol (Vitamin D3) [Vitamin D3] 5,000 unit PO DAILY 03/07/17 [History] Hydrochlorothiazide [Microzide] 12.5 mg PO BID 03/07/17 [History] Magnesium Oxide [Magnesium] 500 mg PO BEDTIME 03/07/17 [History] Metoprolol Succinate [Toprol Xl] 50 mg PO DAILY 03/07/17 [History] Potassium Chloride [Klor-Con 10] 40 meq PO BID 30 Days tab.er 10/31/17 [Rx] Loperamide HCl [Anti-Diarrheal] 1 tab PO TIDAC 06/29/18 [History] Patient Handouts: Transient Ischemic Attack, Syncope, Hypertension Forms: ED Department Discharge Referrals: Chauncey Leon MD [Consulting Physician] - (Follow up with Dr. Leon in one week. Need to discuss consideration of starting Plavix due to TIA) - Discharge Summary/Plan Comment DC Time >30 min.: No - General Info Date of Service: 06/30/18 Admission Dx/Problem (Free Text: TIA Functional Status: Reports: Pain Controlled, Tolerating Diet, Ambulating - Review of Systems General: Denies: Fever, Weakness, Fatigue HEENT: Reports: No Symptoms Pulmonary: Denies: Cough Cardiovascular: Denies: Chest Pain, Edema, Lightheadedness Gastrointestinal: Reports: Diarrhea. Denies: Abdominal Pain, Nausea, Vomiting Musculoskeletal: Reports: No Symptoms Skin: Reports: No Symptoms Neurological: Reports: No Symptoms - Patient Data Vitals - Most Recent: Last Vital Signs Temp 97.3 F 06/30/18 07:02 Pulse 62 06/30/18 07:02 Resp 16 06/30/18 07:02 BP 134/55 L 06/30/18 07:02 Pulse Ox 97 06/30/18 07:02 Weight - Most Recent: 172 lb 9.6 oz Lab Results - Last 24 hrs: Laboratory Results - last 24 hr 06/30/18 06/30/18 Range/Units 07:00 07:00 WBC 10.4 H (5.0-10.0) 10^3/uL RBC 4.24 L (4.50-6.00) 10^6/uL Hgb 12.4 L (14.0-18.0) g/dL Hct 38.2 L (40.0-54.0) % MCV 90.1 (82.0-94.0) fL MCH 29.2 (27.0-32.0) pg MCHC 32.5 L (33.0-38.0) g/dL RDW Coeff of [place] 15.0 (11.0-15.0) % Plt Count 252 (150-400) 10^3/uL Neut % (Auto) 69.0 (35-85) % Lymph % (Auto) 15.9 (10-55) % [place] % (Auto) 12.0 (0-16) % Eos % (Auto) 2.8 (0-5) % Baso % (Auto) 0.3 (0-3) % Neut # (Auto) 7.14 H (1.80-7.00) 10^3/uL Lymph # (Auto) 1.65 (1.00-4.80) 10^3/uL [place] # (Auto) 1.24 H (0.00-0.80) 10^3/uL Eos # (Auto) 0.29 (0.00-0.45) 10^3/uL Baso # (Auto) 0.03 10^3/uL Sodium 140 (136-145) mEq/L Potassium 3.7 (3.5-5.0) mEq/L Chloride 103 (98-106) mEq/L Carbon Dioxide 30 (21-32) mmol/L BUN 22 H (7-18) mg/dL Creatinine 1.3 (0.7-1.3) mg/dL Est Cr Clr Drug Dosing 38.52 mL/min Estimated GFR (MDRD) 52 L (>=60) mL/min Glucose 93 (75-99) mg/dL Calcium 8.7 (8.4-10.1) mg/dL C-Reactive Protein 0.6 (0.2-0.8) mg/dL MONIQUE Results - Last 24 hrs: Microbiology 06/29/18 01:00 Stool Aerobic Culture - Preliminary Stool / Feces Med Orders - Current: Current Medications Discontinued Medications Amlodipine Besylate (Norvasc) 5 mg PO ONETIME ONE Stop: 06/28/18 15:20 Last Admin: 06/28/18 16:14 Dose: 5 mg Aspirin (Halfprin) 81 mg PO DAILY [facility] Last Admin: 06/30/18 07:39 Dose: 81 mg Enoxaparin Sodium (Lovenox) 40 mg SUBCUT Q24H [facility] Last Admin: 06/29/18 16:25 Dose: 40 mg Finasteride (Proscar) 5 mg PO DAILY [facility] Last Admin: 06/30/18 07:39 Dose: 5 mg Hydrochlorothiazide (Hydrochlorothiazide) 12.5 mg PO BID [facility] Last Admin: 06/30/18 07:38 Dose: 12.5 mg Lactated Ringer's (Ringers, Lactated) 1,000 mls @ 75 mls/hr IV ASDIRECTED [facility] Last Admin: 06/29/18 01:30 Dose: 75 mls/hr Magnesium Oxide (Magnesium Oxide) 500 mg PO BEDTIME [facility] Last Admin: 06/29/18 19:52 Dose: 500 mg Metoprolol Tartrate (Lopressor) Confirm Administered Dose 5 mg .ROUTE .STK-MED ONE Stop: 06/28/18 13:26 Last Admin: 06/28/18 14:01 Dose: Not Given Metoprolol Tartrate (Lopressor) 5 mg IVPUSH ONETIME ONE Stop: 06/28/18 14:01 Last Admin: 06/28/18 13:32 Dose: 5 mg Ptom Benazepril (Hcl 20 Mg) 20 mg PO BID [facility] Last Admin: 06/30/18 07:39 Dose: 20 mg Ptom* Cholestyramine/Sucrose [ Cholestyramine] 4 Gm 4 gm PO BID [facility] Last Admin: 06/30/18 07:39 Dose: 4 gm Ptom Metoprolol Succinate [Toprol Xl ] 50 Mg 50 mg PO DAILY [facility] Last Admin: 06/30/18 09:39 Dose: 50 mg Ptom Loperamide Hcl [Anti-Diarrheal] 2 Mg Tab 1 tab PO TIDAC [facility] Last Admin: 06/30/18 07:38 Dose: 1 tab Ondansetron HCl (Zofran) 4 mg IVPUSH Q6H PRN PRN Reason: Nausea Last Admin: 06/29/18 01:32 Dose: 4 mg Oxyquinoline Sulfate (Bag [place] Oint) 1 oz TOP ASDIRECTED PRN PRN Reason: Rash Potassium Chloride (Klor-Con 10) 20 meq PO BIDMEALS MANDO Last Admin: 06/30/18 07:39 Dose: 20 meq - Exam General: Reports: Alert, Oriented HEENT: Reports: Mucous Membr. Moist/[place] Neck: Reports: Supple Lungs: Reports: Clear to Auscultation, Normal Respiratory Effort Cardiovascular: Reports: Regular Rate, Regular Rhythm GI/Abdominal Exam: Normal Bowel Sounds, Soft, Non-Tender Extremities: Normal Inspection, No Pedal Edema Skin: Reports: Warm, Dry Neurological: Reports: No New Focal Deficit, Normal Gait, Normal Speech, Strength Equal Bilateral
== END 2018-06-30 11:32 | disposition home or self-care (01) | DRG 69 ==
LOC: CC.ED 13:00 → CC.MS 14:48 → UNDOADMOB 14:56 → OBSVTOIN 06-29 09:15
PROVIDERS: ADMIT Physician Assistant Medical; ATTEND Family Medicine
DX: G45.9 Transient cerebral ischemic attack, unspecified (principal); R41.0 Disorientation, unspecified; R53.1 Weakness; R47.81 Slurred speech; I49.9 Cardiac arrhythmia, unspecified; K52.9 Noninfective gastroenteritis and colitis, unspecified; R55 Syncope and collapse; K50.90 Crohn's disease, unspecified, without complications; E78.00 Pure hypercholesterolemia, unspecified; I10 Essential (primary) hypertension; K59.09 Other constipation; N40.0 Benign prostatic hyperplasia without lower urinary tract symptoms; M19.90 Unspecified osteoarthritis, unspecified site; G89.29 Other chronic pain; M54.9 Dorsalgia, unspecified; H91.90 Unspecified hearing loss, unspecified ear; H54.7 Unspecified visual loss; Z85.038 Personal history of other malignant neoplasm of large intestine; Z88.5 Allergy status to narcotic agent; Z88.0 Allergy status to penicillin; Z88.2 Allergy status to sulfonamides; Z91.041 Radiographic dye allergy status; Z79.82 Long term (current) use of aspirin; Z86.718 Personal history of other venous thrombosis and embolism; Z79.899 Other long term (current) drug therapy; Z90.49 Acquired absence of other specified parts of digestive tract; Z87.891 Personal history of nicotine dependence
CPT/HCPCS: 36415; 70450; 70551; 80048; 80061; 81001; 82550; 83735; 85025; 85610; 85730; 86140; 87045; 87046; 87493; 89055; 93005; 93306; 93880; 96361; 96372; 96374; 96375; 99285; A9270-GY; G0378; J1650; J2405; J3490; J7120